=== PATIENT | male | born 1960 | race Two or more races ===

== ENCOUNTER 2024-03-15 10:23 | Observation (INO) ==
--- NOTE | 2024-03-15 10:47 | Emergency Department Note ---
History of Present Illness General Chief complaint: Wrist Pain Stated complaint: SPRAINED LT WRIST/ARM Time Seen by Provider: 03/15/24 10:37 History of Present Illness Maximum Pain Intensity: 10 This is a 64-year-old male that presents to the emergency department via private vehicle with complaints of "left hand and wrist pain". The patient notes he is right-hand dominant. Friday, this past weekend around 2 PM he was playing with family and notes that he tripped over a dog and landed with his left hand outstretched striking the palm against a small tree stump that impaled the left palm. He notes left hand and left wrist pain since that time. He did not strike the head or lose consciousness. No other areas of pain beyond the hand/wrist region. Patient notes tetanus vaccine is up-to-date. Patient does note history of type 2 diabetes. He notes history of codeine allergy. He has been trying ibuprofen and acetaminophen with minimal relief of his pain. Patient states that he was seen at [facility] emergency department when the injury occurred and was discharged in the splint. He notes he has no pain medication. No antibiotics. He was told that there was no fracture seen on x- ray. Home Medications Medication Instructions Recorded Confirmed Type rosuvastatin 40 mg tablet 40 mg PO DAILY 05/22/23 03/15/24 History fluticasone propionate 50 2 spray intranasal DAILY PRN 05/26/23 03/15/24 History mcg/actuation nasal allergies spray,suspension tamsulosin 0.4 mg capsule 0.4 mg PO HS 05/26/23 03/15/24 History glyburide 5 mg tablet 5 mg PO DAILY 03/15/24 03/15/24 History lisinopril 20 mg tablet 20 mg PO DAILY 03/15/24 03/15/24 History metformin 500 mg tablet,extended 1,000 mg PO BID 03/15/24 03/15/24 History release 24 hr pregabalin 150 mg capsule 150 mg PO BID 03/15/24 03/15/24 History Allergies Allergy/AdvReac Type Severity Reaction Status Date / Time codeine Allergy Hives Verified 03/15/24 11:15 Past Med/Surg History Problem List (Updated 03/15/24 @ 15:03 by Malick Matt PA-C) Puncture wound of hand (Acute) Cellulitis of left upper extremity (Acute) Cellulitis of left arm Depression Erectile dysfunction Dyslipidemia Hypertension Obesity (BMI 30-39.9) Type 2 diabetes mellitus Surgical History H/O total knee replacement Social History Smoking Status: Never smoker Preferred Language: [place] Feels Safe at Home: Yes Review of Systems A total of 10 systems reviewed and were otherwise negative Physical Exam Vital Signs Vital Signs - 24 hr 03/15/24 10:32 03/15/24 12:05 Temperature 36.7 C Temperature Source Skin Pulse Rate 89 Pulse Rate [Right Finger] 74 Pulse Rhythm [Right Finger] Regular Pulse Strength [Right Finger] Normal Respiratory Rate 16 20 Respiratory Effort / Characteristics Non-Labored Spontaneous Non-Labored Spontaneous Respiratory Depth Normal Normal Respiratory Pattern Regular Regular Blood Pressure 137/82 Blood Pressure [Right Arm] 123/72 Blood Pressure Mean 100 Blood Pressure Mean [Right Arm] 89 Blood Pressure Position [Right Arm] Sitting Pulse Oximetry 97 99 Oxygen Delivery Method Room Air Room Air Sepsis Recent Fever Within 48 Hours No Sepsis New/Unexplained Change in Mental Status N/A Sepsis Action Taken by Nursing No Action Required VITAL SIGNS - Vital signs and nursing notes were reviewed. Stable and afebrile. GENERAL -64-year-old male appearing his stated age who is in no acute distress. Communicates well with provider and answers questions appropriately. SKIN -approximately 6 mm in diameter puncture wound as evidenced by hole in the proximal palmar aspect of the left hand noted. There is surrounding erythema and edema particularly overlying the thenar eminence. No crepitus. No lymphangitic streaking. HEAD - NC/AT. EYES - PERRL with EOMI bilaterally. Sclera anicteric. EARS - No deformities of external structures noted on gross examination bilaterally. NOSE - Midline and without cyanosis. No epistaxis or purulent drainage noted. MOUTH/OROPHARYNX - Without perioral cyanosis. NECK - Neck with FROM. No nuchal rigidity. LUNGS - CTA CARDIAC - RRR EXTREMITIES - No clubbing or peripheral cyanosis. Skin as above. The entire left hand, left wrist region is tender. Left radial pulse within normal limits. Capillary refill of all digits of the left hand within normal limits. +5/5 strength noted in UE/LE bilaterally. NEUROLOGIC - Cranial nerves II through XII grossly intact. PSYCH - A&Ox3 and cooperates fully with examiner. Pt is very pleasant and interacts well with examiner. Course Administered Medications Lorazepam (Lorazepam 2 Mg/1 Ml Vial) 1 mg IV ONE PRN PRN Reason: PRIOR TO MRI IF NEEDED Stop: 04/14/24 13:16 Last Admin: 03/15/24 13:31 Dose: 1 mg Documented By: TIM Discontinued Medications Piperacillin Sod/Tazobactam Sod (Zosyn) 4.5 gm in 100 mls @ 200 mls/hr IV NOW ONE; Protocol Stop: 03/15/24 13:02 Last Infusion: 03/15/24 13:27 Dose: Infused Documented By: Admin: 03/15/24 12:40 Dose: 200 mls/hr Documented By: ELFEGO Ketorolac Tromethamine (Ketorolac 30 Mg/Ml Vial) 30 mg IV NOW ONE Stop: 03/15/24 13:13 Last Admin: 03/15/24 13:31 Dose: 30 mg Documented By: TIM Morphine Sulfate (Morphine Sulfate 2 Mg/Ml Carp) 2 mg IV NOW STA Stop: 03/15/24 12:35 Last Admin: 03/15/24 12:40 Dose: 2 mg Documented By: ELFEGO Oxycodone HCl (Oxycodone Hcl Ir 5 Mg Tab (Immediate Release)) 5 mg PO NOW STA Stop: 03/15/24 10:53 Last Admin: 03/15/24 11:08 Dose: 5 mg Documented By: ELFEGO Medical Decision Making Laboratory Data 03/15/24 11:09 03/15/24 11:09 Lab Results 03/15/24 Range/Units 11: WBC 6.35 (4.8-10.8) K/ul RBC 3.99 L (4.70-6.10) M/uL Hgb 11.5 L (14.0-18.0) g/dl Hct 33.5 L (42.0-52.0) % MCV 84.0 (80.0-100.0) fL MCH 28.8 (25.0-34.0) pg MCHC 34.3 (32.0-36.0) g/dL RDW Std Deviation 44.6 (36.4-46.3) fL RDW Coeff of Wai 14.6 H (11.5-14.5) % Plt Count 198 (130-400) K/uL MPV 10.4 (9.4-12.4) fL Immature Gran % (Auto) 0.6 % Neut % (Auto) 68.2 % Lymph % (Auto) 20.9 % [place] % (Auto) 6.6 % Eos % (Auto) 3.1 % Baso % (Auto) 0.6 % Neut # (Auto) 4.32 (1.40-6.50) K/uL Lymph # (Auto) 1.33 (1.20-3.40) K/uL [place] # (Auto) 0.42 (0.11-0.59) K/uL Eos # (Auto) 0.20 (0.00-0.50) K/uL Baso # (Auto) 0.04 (0.00-0.20) K/uL Immature Gran # (Auto) 0.04 (0.01-0.20) K/uL Sodium 136 (136-145) mmol/L Potassium 4.2 (3.5-5.1) mmol/L Chloride 103 (98-107) mmol/L Carbon Dioxide 26 (21-32) mmol/L Anion Gap 7 (3-11) BUN 14 (6-23) mg/dl Creatinine 0.73 (0.6-1.4) mg/dl Est Cr Clr Drug Dosing 125.7 ml/min eGFR 102.23 BUN/Creatinine Ratio 19.2 (10-20) Glucose 190 H (70-99(Fasting)) mg/dl Calcium 9.7 (8.6-10.3) mg/dl Total Bilirubin 0.4 (0.2-1.0) mg/dl AST 20 (13-39) U/L ALT 29 (7-52) U/L Alkaline Phosphatase 70 (34-104) U/L Total Protein 7.4 (6.0-8.3) gm/dl Albumin 4.4 (3.4-5.0) gm/dl Globulin 3.0 (2.5-4.0) gm/dl Albumin/Globulin Ratio 1.5 (0.9-2) Imaging Data Radiologist's Impression: Wrist X-Ray 03/15/24 10:36 XR wrist LT min 3V routine CLINICAL HISTORY: Left wrist pain following injury. COMPARISON: None FINDINGS: Alignment of the left wrist is anatomic. There is no acute fracture. No osseous lesions are identified. There are no erosions. Vascular calcifications incidentally noted. 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 IMPRESSION: No fracture or dislocation within the left wrist. ACT 112: Negative or not required by law. Electronically signed by: Nadir Benz M.D. 03/15/2024 11:20 AM Hand X-Ray 03/15/24 10:52 XR hand LT min 3V routine HISTORY: 64 years-old Male L hand pain s/p injury acute pain of the left hand and wrist status post trauma COMPARISON: Wrist radiographs of same day TECHNIQUE: 3 views of the left hand FINDINGS: Arterial calcifications. Multifocal osteoarthritis is predominantly mild however is moderate within the first carpometacarpal joint. No acute fracture, dislocation, osseous erosion or opaque foreign body. IMPRESSION: No acute fracture or dislocation identified within the hand. ACT 112: Negative or not required by law. The above report was generated using voice recognition software. It may contain grammatical, syntax or spelling errors. Electronically signed by: Carlos Manuel Nelson M.D. 03/15/2024 11:16 AM MDM Narrative Patient was seen and evaluated as above in room D02. Review was performed of triage nursing notes and vital signs. Patient presents to us today for evaluation of a puncture wound to the palmar aspect of the left hand with worsening pain since the injury occurred a few days ago. On assessment there is erythema and edema now surrounding the wound and the patient notes progressive and proximal tracking discomfort and edema. On assessment he cannot fully close his left hand. Options of care were discussed with the patient. IV access with established. Labs were drawn. There is no leukocytosis. Minor anemia noted. No emergent metabolic disturbance. Hyperglycemia at 190 noted. IV Zosyn ordered for broad- spectrum coverage. I also ordered oral and IV analgesia as initial oral medicine did not seem to provide any relief. X-ray hand and wrist per my interpretation without fracture or radiopaque foreign body. I discussed findings and presentation with the on-call orthopedist, Dr. Rowland. Will proceed with IV antibiotics and hospitalization. Patient will be n.p.o. at this time pending orthopedic assessment later today. I did place a dressing to the hand as instructed by orthopedics. Case discussed with the hospitalist service. Please refer to further documentation regarding his stay. GCS: 15 In the evaluation and treatment of this patient the following differential diagnoses were entertained: Cellulitis, abscess, necrotizing fasciitis, retained foreign body, fracture, open injury, among others. Impression & Plan Cellulitis of left upper extremity, Puncture wound of hand Discharge Plan Visit Data Chief Complaint: Wrist Pain Stated Complaint: SPRAINED LT WRIST/ARM ED Provider: Javier Polanco ED Midlevel Provider: Malick Matt Discharge Problem: Cellulitis of left upper extremity, Puncture wound of hand Patient Disposition: Admitted As Inpatient Condition: Good Forms Stand Alone Forms: [facility] [employer] Prescriptions Prescriptions: No Action tamsulosin 0.4 mg capsule 0.4 mg PO HS rosuvastatin 40 mg tablet 40 mg PO DAILY fluticasone propionate 50 mcg/actuation spray,suspension 2 spray intranasal DAILY PRN (Reason: allergies) Rx Instructions: administer into each nostril glyburide 5 mg tablet 5 mg PO DAILY lisinopril 20 mg tablet 20 mg PO DAILY metformin 500 mg tablet extended release 24 hr 1,000 mg PO BID pregabalin 150 mg capsule 150 mg PO BID Referrals Referrals: PCP,NO [Physician] -
[2024-03-15] MEDS: oxyCODONE HCL IR 5 MG TAB (IMMEDIATE RELEASE) PO STA (11:08)
--- NOTE | 2024-03-15 11:17 | XRay Report ---
XR hand LT min 3V routine HISTORY: 64 years-old Male L hand pain s/p injury acute pain of the left hand and wrist status post trauma COMPARISON: Wrist radiographs of same day TECHNIQUE: 3 views of the left hand FINDINGS: Arterial calcifications. Multifocal osteoarthritis is predominantly mild however is moderate within t he first carpometacarpal joint. No acute fracture, dislocation, osseous erosion or opaque foreign bod y. IMPRESSION: No acute fracture or dislocation identified within the hand. ACT 112: Negative or not required by law. The above report was generated using voice recognition software. It may contain grammatical, syntax o r spelling errors. Electronically signed by: Carlos Manuel Nelson M.D. 03/15/2024 11:16 AM
--- NOTE | 2024-03-15 11:21 | XRay Report ---
XR wrist LT min 3V routine CLINICAL HISTORY: Left wrist pain following injury. COMPARISON: None FINDINGS: Alignment of the left wrist is anatomic. There is no acute fracture. No osseous lesions ar e identified. There are no erosions. Vascular calcifications incidentally noted. Moderate osteoarthri tis of the left first carpometacarpal joint. IMPRESSION: No fracture or dislocation within the left wrist. ACT 112: Negative or not required by law. Electronically signed by: Nadir Benz M.D. 03/15/2024 11:20 AM
[2024-03-15 11:41] LABS: Basophils # (auto) 0.04 K/uL (0.00-0.20); Basophils % (auto) 0.6 %; Eosinophils % (auto) 3.1 %; Hematocrit (blood only) 33.5 % (42.0-52.0); Hemoglobin 11.5 g/dl (14.0-18.0); Immature Granulocytes # (auto) 0.04 K/uL (0.01-0.20); Immature Granulocytes % (auto) 0.6 %; Lymphocytes # (auto) 1.33 K/uL (1.20-3.40); Lymphocytes % (auto) 20.9 %; Mean Corpuscular Hemoglobin 28.8 pg (25.0-34.0); Mean Corpuscular Hgb Conc 34.3 g/dL (32.0-36.0); Mean Platelet Volume 10.4 fL (9.4-12.4); Monocytes # (auto) 0.42 K/uL (0.11-0.59); Monocytes % (auto) 6.6 %; Neutrophils # (auto) 4.32 K/uL (1.40-6.50); Neutrophils % (auto) 68.2 %; Platelet Count 198 K/uL (130-400); RDW Coefficient of Variation 14.6 % (11.5-14.5); RDW Standard Deviation 44.6 fL (36.4-46.3); Red Blood Count 3.99 M/uL (4.70-6.10); White Blood Count 6.35 K/ul (4.8-10.8)
[2024-03-15 11:50] LABS: Albumin Globulin Ratio 1.5 (0.9-2); Albumin Level 4.4 gm/dl (3.4-5.0); BUN Creatinine Ratio 19.2 (10-20); Bilirubin,Total 0.4 mg/dl (0.2-1.0); Calcium 9.7 mg/dl (8.6-10.3); Creatinine Clr Calc Pharmacy 125.7 ml/min; Potassium 4.2 mmol/L (3.5-5.1); Total Protein 7.4 gm/dl (6.0-8.3)
[2024-03-15] MEDS: MoRPHine SULFATE 2 MG/ML CARP IV STA (12:40)
[2024-03-15] MEDS: PIPERACILLIN/TAZOBACTAM 4.5 GM/100 ML BAG IV ONE (12:40)
--- NOTE | 2024-03-15 12:53 | History & Physical Report ---
Date of Service March 15, 2024 Assessment & Plan (1) Cellulitis of left arm: Plan Ron Rose is a 64y/o M with PMHx significant for DM type II, diabetic peripheral neuropathy, SHANNON on CPAP, HTN, BPH, hyperlipidemia, vitamin D deficiency and essential tremor who presented to the ED for evaluation of left hand and wrist pain. Patient was playing outside with his family and tripped over their dog this past Friday which resulted in him landing on his left hand outstretched directly onto a small tree stump - he unfortunately suffered a puncture wound to his left palmar region as there was a piece of sharp wood that was sticking out of the tree stump. He was evaluated at [facility] emergency department after the injury occurred and x-ray imaging at that time was negative for any acute fractures. He was discharged home with instructions for wound care and he was also placed in a splint at that time. However he has been dealing with a significant amount of pain since then and has noticed some erythema and warmth around the site of the puncture wound that seems to be tracking up his left forearm region. No recent systemic signs of illness. Cellulitis of Hand, Left ForeArm: Vital stable, no evidence of sepsis on admission. Notable erythema/warmth of L palmar region, erythematous tracking visualized up the L forearm as well. L hand/wrist XR with no evidence of fracture/dislocation. S/p IV Zosyn in the ED. MRSA swab pending. Continue ABX coverage w/ IV Zosyn + Daptomycin for now. PRN pain control. Blood cultures pending. Ortho made aware of the patient in the ED - formal consult pending. NPO until evaluated by ortho. DM Type II: Hold home agents, SSI regimen while inpatient. BSG checks ACHS. Most recent Hgb A1c was 8.3% on 02/24/2024. Other Chronic Medical Conditions: Diabetic peripheral neuropathy, HTN, BPH --> Can continue home medications for these specific conditions. CPAP HS for SHANNON. Hold statin while on daptomycin. DVT Prophylaxis: SCDs/TEDs for now pending orthopedic evaluation. Code Status: FULL CODE PCP: Maya Cutler MD Disposition: Admit to Med/Surg Patient seen in collaboration with Dr. Kerns. Please see addendum. I spent a total of 50 minutes coordinating, documenting, and providing care for this patient excluding time spent in the performance of separately billed s ervices. This included personally reviewing all current laboratories and imaging studies, medical reconciliation, outpatient chart review and discussion with specialists. This chart was completed in part utilizing Speech Voice Recognition Software. Grammatical errors, random word insertions, pronoun errors, and incomplete sentences are an occasional consequence of this system due to software limi tations, ambient noise, and hardware issues. Any formal questions or concerns about the content, text, or information contained within the body of this dictation should be directly addressed to the provider for clarification. History of Present Illness Chief Complaint: Left Hand/Wrist Pain Primary Care Provider: Maya Cutler MD Ron Rose is a 64y/o M with PMHx significant for DM type II, diabetic peripheral neuropathy, SHANNON on CPAP, HTN, BPH, hyperlipidemia, vitamin D deficiency and essential tremor who presented to the ED for evaluation of left hand and wrist pain. History obtained from patient and associated chart review. Patient seen at bedside with Dr. Kerns. Patient reports that he was playing outside with his family and tripped over his dog this past Friday which resulted in him landing on his left hand outstretc hed directly onto a small tree stump. He unfortunately suffered a puncture wound to his left palmar region as there was a piece of sharp wood that was sticking out of the tree stump. The piece of wood thankfully did not impale through his entire hand. He does not recall any fragments of wood being stuck inside of this puncture wound. He actually went to be evaluated at [facility] emergency department after the injury occurred and x-ray imaging at that time was negative for any acute fractures. He was discharged home with instructions for wound care and he was also placed in a splint at that time. He has been dealing with a significant amount of pain since then. He has been taking Motrin and Tylenol [id number] without much relief. He reports that he is now unable to move his left wrist or hand due to the pain. He does still have mobility at his left elbow joint. He has noticed some redness and warmth around the site of the puncture wound that does seem to be tracking up his left forearm region. He denies any fevers, chills or body aches since the injury occurred. He reports that his tetanus vaccination is up-to-date [last completed 09/25/2023 per Epic review]. He is not currently on any antibiotics. He has been cleaning his puncture wound at home with hydrogen peroxide. Patient reports minimal if any pain relief following 5mg po oxycodone and 2mg IV morphine in the ED. Mentions that he had an itching sensation over his right chest wall region after receiving the morphine however that has since subsided without intervention. He reports that he breaks out in hives and full-body itching with codeine. Offered to trial IV Toradol and he was agreeable to doing so. Allergies Allergy/AdvReac Type Severity Reaction Status Date / Time codeine Allergy Hives Verified 03/15/24 11:15 Home Medications Medication Instructions Recorded Confirmed Type rosuvastatin 40 mg tablet 40 mg PO DAILY 05/22/23 03/15/24 History fluticasone propionate 50 2 spray intranasal DAILY PRN 05/26/23 03/15/24 History mcg/actuation nasal allergies spray,suspension tamsulosin 0.4 mg capsule 0.4 mg PO HS 05/26/23 03/15/24 History glyburide 5 mg tablet 5 mg PO DAILY 03/15/24 03/15/24 History lisinopril 20 mg tablet 20 mg PO DAILY 03/15/24 03/15/24 History metformin 500 mg tablet,extended 1,000 mg PO BID 03/15/24 03/15/24 History release 24 hr pregabalin 150 mg capsule 150 mg PO BID 03/15/24 03/15/24 History Past Med/Surg History Problem List (Updated 03/15/24 @ 17:29 by Loli Shafer PA-C) Puncture wound of hand (Acute) Cellulitis of left upper extremity (Acute) Cellulitis of left arm Medical History (Updated 03/15/24 @ 17:29 by Loli Shafer PA-C) Depression Erectile dysfunction Dyslipidemia Hypertension Obesity (BMI 30-39.9) Type 2 diabetes mellitus Surgical History H/O total knee replacement Social History Smoking Status: Never smoker Hx Alcohol Use: Yes Alcohol type: beer Hx Substance Use: No Preferred Language: Kyrgyz Communication Ability: Effective Computer Security Manager Required: No Beliefs That Will Affect Care: None Current Living Situation: Alone and Spouse Current Living Situation Comment: 2 story home , 1 step to enter home Other Information That Helps Us Care for You: No Feels Safe at Home: Yes Safety Concerns: Feels Safe At This Time Assistive Devices: CPAP and Glasses Review of Systems Review of Systems: At least ten systems reviewed and negative, except as noted in the HPI. Physical Exam Physical Exam: Please refer to Dr. Kerns's addendum for physical examination findings. Results & Data Results & Data Vital Signs (Past 12 Hours) Vital Signs Temp Pulse Pulse Resp BP BP Pulse Ox 03/15/24 12:05 74 20 123/72 99 03/15/24 10:32 36.7 C 89 16 137/82 97 O2 Del Method 03/15/24 12:05 Room Air 03/15/24 10:32 Room Air Laboratory Results Short CBC 03/15/24 Range/Units 11:09 WBC 6.35 (4.8-10.8) K/ul Hgb 11.5 L (14.0-18.0) g/dl Hct 33.5 L (42.0-52.0) % Plt Count 198 (130-400) K/uL BMP 03/15/24 11:09 Sodium 136 Potassium 4.2 Chloride 103 Carbon Dioxide 26 BUN 14 Creatinine 0.73 Glucose 190 H Calcium 9.7 Liver Function 03/15/24 Range/Units 11:09 Total Bilirubin 0.4 (0.2-1.0) mg/dl AST 20 (13-39) U/L ALT 29 (7-52) U/L Alkaline Phosphatase 70 (34-104) U/L Albumin 4.4 (3.4-5.0) gm/dl Diagnostic Findings Wrist X-Ray 03/15/24 10:36 XR wrist LT min 3V routine CLINICAL HISTORY: Left wrist pain following injury. COMPARISON: None FINDINGS: Alignment of the left wrist is anatomic. There is no acute fracture. No osseous lesions are identified. There are no erosions. Vascular calcifications incidentally noted. 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 IMPRESSION: No fracture or dislocation within the left wrist. ACT 112: Negative or not required by law. Electronically signed by: Nadir Benz M.D. 03/15/2024 11:20 AM Hand X-Ray 03/15/24 10:52 XR hand LT min 3V routine HISTORY: 64 years-old Male L hand pain s/p injury acute pain of the left hand and wrist status post trauma COMPARISON: Wrist radiographs of same day TECHNIQUE: 3 views of the left hand FINDINGS: Arterial calcifications. Multifocal osteoarthritis is predominantly mild however is moderate within the first carpometacarpal joint. No acute fracture, dislocation, osseous erosion or opaque foreign body. IMPRESSION: No acute fracture or dislocation identified within the hand. ACT 112: Negative or not required by law. The above report was generated using voice recognition software. It may contain grammatical, syntax or spelling errors. Electronically signed by: Carlos Manuel Nelson M.D. 03/15/2024 11:16 AM Medications Administered Piperacillin Sod/Tazobactam Sod (Zosyn) 4.5 gm in 100 mls @ 200 mls/hr IV NOW ONE; Protocol Stop: 03/15/24 13:02 Last Admin: 03/15/24 12:40 Dose: 200 mls/hr Documented By: ELFEGO Discontinued Medications Morphine Sulfate (Morphine Sulfate 2 Mg/Ml Carp) 2 mg IV NOW STA Stop: 03/15/24 12:35 Last Admin: 03/15/24 12:40 Dose: 2 mg Documented By: ELFEGO Oxycodone HCl (Oxycodone Hcl Ir 5 Mg Tab (Immediate Release)) 5 mg PO NOW STA Stop: 03/15/24 10:53 Last Admin: 03/15/24 11:08 Dose: 5 mg Documented By: ELFEGO Code Status & VTE Plan Code Status FULL CODE Supervising Physician Co-Signing Physician Notes Attending Addendum: Case reviewed with the advanced practitioner. I have personally performed a history and physical examination on the patient. I have reviewed the advanced practitioner's documentation on the date of service referenced in note, and I agree with, and take responsibility for the plan of care. please refer to her notes for full details patient seen and examined, records reviewed by myself as well on exam, patient seen resting in bed, not in distress reports severe pain of the left hand and wrist, worse even with minimal movement no other symptoms VS noted and reviewed oriented x 3 , not in distress, speaks in sentences with no effort nor accessory muscle use normal rate, regular rhythm, no murmurs clear breath sounds bilaterally non distended, soft, nontender Left hand: (+) small puncture wound on the palm, with mild surrounding erythema, edema, (+) significant tenderness poor ROM of left wrist mild linear erythema, left radial area no bipedal edema, erythema, warmth no neuro deficits all labs, imaging noted and reviewed ASSESSMENT AND PLAN> INFECTED PUNCTURE WOUND, LEFT HAND (+) DM 2 blood culture: pending no bleeding or drainage noted for wound culture Xray of hand: no fracture IV Dapto + Zosyn Ortho consulted Pain Management with Tylenol, Toradol IV (history of rash with codeine) other diagnoses and plan of care as per advanced practitioner's notes Sagar Kerns MD
[2024-03-15] MEDS ORDERED: FLUTICASONE PROPIONATE NA SPR 16 GM BTL PRN (13:30)
[2024-03-15] MEDS: LORazepam 2 MG/1 ML VIAL IV PRN (13:31)
[2024-03-15] MEDS: KETOROLAC 30 MG/ML VIAL IV ONE (13:31)
[2024-03-15] MEDS: ONDANSETRON INJ 2 MG/ML 2 ML VIAL ONE (15:12)
--- OUTSIDE RECORDS SUMMARY | 2024-03-15 15:52 | External Medical Summary | Summary of Care ---
Author Name Unknown Organization [facility] Address [address] [place] [address] Phone [phone] Care Team Providers Care Spring Former Name Role Phone Maya Cutler MD Primary Care Provider [phone] Reason for Visit * Reason Comments Acute Encounter Details Date Type Department Care Team ([facility] Contact Info) Description 01/07/2024 9:40 AM EDT Office Visit Family Practice [facility] [address] [facility] [place] [address] Nely Sena PA-C [address] [facility] [place] [place] [address] Pain of right lower leg*; Diabetic peripheral neuropathy (HCC); Need for shingles vaccine Allergies Active Allergy Reactions Criticality Noted Date Comments Codeine 03/27/2023 Gets anxiety Latex 03/14/2023 documented as of this encounter (statuses as of 01/07/2024) Medications Medication Sig Dispensed Refills Start Date End Date Status Lisinopril 20 MG Oral Tablet (Prinivil) Take 1 Tablet by mouth in the morning. Active metFORMIN HCl ER 500 MG Oral Tablet Extended Release 24 Hour (Glucophage XR)Indications:Unco ntrolled type 2 diabetes mellitus with hyperglycemia (HCC) Take 2 Tablets by mouth in the morning and 2 Tablets in the evening. 360 Tablet 3 03/14/2023 Active OneTouch Ultra 2 w/Device KitIndications:Unco ntrolled type 2 diabetes mellitus with hyperglycemia (HCC) Use to check blood sugar two to four times daily 1 Kit 03/17/2023 Active OneTouch UltraSoft LancetsIndications: Uncontrolled type 2 diabetes mellitus with hyperglycemia (HCC) Use with glocometer to check blood sugar two to four times daily 100 Each 11 03/17/2023 Active Glucose Blood In Vitro StripIndications:Un controlled type 2 diabetes mellitus with hyperglycemia (HCC) Use with glucometer to check blood sugar two to four times daily 100 Strip 11 03/17/2023 Active Rosuvastatin Calcium 40 MG Oral Tablet (Crestor)Indication s:Dyslipidemia, goal LDL below 70 Take 1 Tablet by mouth in the morning. 90 Tablet 3 03/27/2023 Active Ozempic (1 MG/DOSE) 4 MG/3ML Subcutaneous Solution Pen-injector (Semaglutide (1 MG/DOSE))Indication s:Type 2 diabetes mellitus with hemoglobin A1c goal of less than 7.0% (HCC) Inject 1 mg under the skin once a week. 3 mL 5 06/02/2023 Active glyBURIDE 5 MG Oral Tablet (Diabeta)Indication s:Uncontrolled type 2 diabetes mellitus with hyperglycemia (HCC) Take 1 Tablet by mouth daily with breakfast. 30 Tablet 11 09/08/2023 Active Tamsulosin HCl 0.4 MG Oral Capsule (Flomax)Indications :BPH with obstruction/lower urinary tract symptoms TAKE 1 CAPSULE BY MOUTH EVERYDAY AT BEDTIME 30 Capsule 5 09/25/2023 Active Pregabalin 150 MG Oral Capsule (Lyrica)Indications :Diabetic peripheral neuropathy (HCC) Take 1 Capsule by mouth in the morning and 1 Capsule before bedtime. 01/07/2024 Active Zoster Vac Recomb Adjuvanted 50 MCG/0.5ML Intramuscular Suspension Reconstituted (Shingrix)Indicatio ns:Need for shingles vaccine Inject 0.5 mL into a large muscle now and repeat dose in 60 to 180 days 1 Each 1 01/07/2024 Active Pregabalin 150 MG Oral Capsule (Lyrica)Indications :Diabetic peripheral neuropathy (HCC) Take 1 Capsule by mouth in the morning and 1 Capsule before bedtime. 60 Capsule 11 12/12/2023 Discontinue d(Medicatio n List Clean Up) documented as of this encounter (statuses as of 01/07/2024) Active Problems Problem Noted Date Diagnosed Date Diabetic peripheral neuropathy 12/12/2023 Class 2 severe obesity due t o excess calories with serious comorbidity and body mass index (BMI) of 35.0 to 35.9 in adult 09/25/2023 BPH with obstruction/lower urinary tract symptom s 09/25/2023 SHANNON (obstructive sleep apnea) 03/27/2023 Food insecurity 03/24/2023 Overview: Per [facility] Protocol Type 2 diabetes mellitus wit h hemoglobin A1c goal of less than 7.0% 03/14/2023 HTN, goal below 130/80 03/14/2023 documented as of this encounter (statuses as of 01/07/2024) Immunizations Name Administration Dates Next Due COVID-19 mRNA, LNP-s, No Pre serve, 2-Dose Series (Pfizer) 06/01/2021,06/28/2020,05/23/2020 Pneumococcal Conjugate Vacci ne, 20-valent ([id number]) 09/25/2023 Seasonal Influenza Virus Vac cine, Unspecified Formulation 03/12/2023 Seasonal Influenza, Split, I IV3, With Preserve, Inj 01/25/2014 TDAP (age 10 and older)(Boostrix) 09/25/2023 Zoster Vaccine Recombinant (Shingrix) 01/07/2024 ,10/16/2023 documented as of this encounter Social History Tobacco Use Types Packs/Day Years Used Date Smoking Tobacco: Never Smokeless Tobacco: Never Alcohol Use Standard Drinks/Week Comments Never 0 (1 standard drink = 0.6 oz pur e alcohol) Hunger Vital Sign Answer Date Recorded Within the past 12 months, y ou worried that your food would run out before you got the money to buy more. Sometimes true Within the past 12 months, t he food you bought just didn't last and you didn't have money to get more. Sometimes true Childcare Answer Date Recorded Do you feel overwhelmed with taking care of a child, family member or friend? No 12/01/2023 Does your family need help f inding childcare? (Household - for ages 0-17 years) Not on file 12/01/2023 Clothing Answer Date Recorded Have you been unable to get clothing when it was really needed? No 12/01/2023 Is your family able to get c lothes or diapers when needed? (Household - for ages 0-17 years) Not on file 12/01/2023 Personal Safety Answer Date Recorded Do you feel unsafe or have concerns for your saf ety? No 12/01/2023 Do you have concerns for you r family's safety? (Household - for ages 0-17 years) Not on file 12/01/2023 Utilities Answer Date Recorded Do you have trouble paying y our heating, water, or electric bill? Yes 12/01/2023 Is your family able to pay t he heat, water, or electric bill? (Household - for ages 0-17 years) Not on file 12/01/2023 Does your family have access to good internet? (Household - for ages 0-17 years) Not on file 12/01/2023 Employment Status Answer Date Recorded Are you unemployed or without regular income? No 12/01/2023 Does the household have a re gular source of income? (Household - for ages 0-17 years) Not on file 12/01/2023 Social Connections Answer Date Recorded How often do you feel lonely or isolated from those around you? Sometimes 12/01/2023 Financial Resource Strain Answer Date R ecorded Do you have any trouble payi ng for your medications, or do you think you might in the future? No 12/01/2023 Does your family have troubl e paying for medicine? (Household - for ages 0-17 years) Not on file 12/01/2023 Transportation Needs Answer Date Record ed READ ONLY Do you have troubl e getting a ride to medical visits or work? Never True 12/01/2023 Does your family have a hard time getting a ride to doctors visits? (Household - for ages 0-17 years) Not on file 12/01/2023 Has lack of transportation k ept you from medical appointments, meetings, work, or from getting things needed for daily living? Check all that apply. No 12/01/2023 Do you (or your family) have trouble finding or paying for a ride (transportation)? (Household - for ages 0-17 years) Not on file 12/01/2023 Housing Stability Answer Date Recorded Do you currently live in a s helter or have no steady place to sleep at night? No 12/01/2023 READ ONLY Do you think you a re at risk of becoming homeless? No 12/01/2023 Does your family worry about paying for your home or becoming homeless? (Household - for ages 0-17 years) Not on file 0 12/01/2023 Are you homeless or worried that you might be in the future? No 12/01/2023 Are you (or your family) karolyn eless or worried that you might be in the future? (Household - for ages 0-17 years) Not on file Food Insecurity Answer Date Recorded Do you need food for this week? No 12/01/2023 Are you able to get enough f ood for your family? (Household - for ages 0-17 years) Not on file 12/01/2023 Does your family need food t his week? (Household - for ages 0-17 years) Not on file 12/01/2023 Do you always have enough fo od for your family? (Household - for ages 0-17 years) Not on file 12/01/2023 Sex and Gender Information Value Date Recorded Sex Assigned at Male 03/13/2023 9:59 AM EDT Gender Identity Male 03/13/2023 9:59 AM EDT Sexual Orientation Straight 03/13/2023 9: 59 AM EDT Job Start Date Occupation Industry Not on file Not on file Not on file documented as of this encounter Last Filed Vital Signs Vital Sign Reading Time Taken Comments Blood Pressure 128/66 01/07/2024 9:30 AM EDT Pulse 66 01/07/2024 9:30 AM EDT Temperature 36.3 C (97.3 F) 01/07/2024 9:30 AM ED T Respiratory Rate 18 01/07/2024 9:30 AM EDT Oxygen Saturation 97% 01/07/2024 9:30 AM EDT Inhaled Oxygen Concentration - - Weight 108.8 kg (239 lb 12.8 oz) 01/07/2024 9:30 AM EDT Height - - Body Mass Index 35.41 12/12/2023 12:46 PM EDT documented in this encounter Progress Notes * Jolie Villalobos LPN - 01/07/2024 10:00 AM EDT Pre-Administration Time Out Procedure Performed: Yes Patient Identified (Ask Name/Date of ): Yes Does the patient have a fever greater than 101 degrees today? No Patient allergic to latex? No Has the patient ever fainted after receiving an injection? No VFC Stock: No Immunization(s) verified: Yes, Immunization Name: Shingrix, VIS Sheet(s) given: Yes Verified Side and Site: Yes Verified Shot(s) with Parent(s)/Patient: Yes * NathenNely PA-C - 01/07/2024 9:38 AM EDT Images from the original note were not included. History of Present Illness Ron Rose is a 63 year old male that presents for No chief complaint on file. Patient is a 63 year old male who presents with right leg pain which has ongoing since 2004. Knee is painful , has had arthroscopic. Pain is intermittent. Worse at night. Gets cramps in leg and feet.Burning pain. Diabetic, good control No swelling Feels like it will give out. Pain radiates down into his calf Physical Exam Vitals: 01/07/24 0930 Temp: 36.3 C (97.3 F) Pulse: 66 Resp: 18 SpO2: 97% BP: 128/66 BP Readings from Last 3 Encounters: 01/07/24 128/66 12/12/23 124/68 09/25/23 126/66 Wt Readings from Last 3 Encounters: 01/07/24 108.8 kg (239 lb 12.8 oz) 12/12/23 108 kg (238 lb) 09/25/23 104.3 kg (230 lb) General: alert, healthy, no distress, well nourished, well developed, comfortable, and cooperative Head: Normocephalic, No masses, lesions, tenderness or abnormalities Eye Exam: PERRLA, extraocular movements intact, conjunctiva are pink and non- injected, sclera clear Lungs: chest symmetric with normal AP diameter, no chest deformities noted, normal respiratory rateand rhythm, diaphragmatic excursion normal Extremities: less than 2 second capillary refill, no joint deformities, effusion, or inflammation, no edema, no skin discoloration, no clubbing, no cyanosis, Full ROM, Pulses Intact, Strength equal bilaterally I have reviewed the following results: None Assessment and Plan Pain of right lower leg (Primary) - XR KNEE 4 OR MORE VIEWS; Future; Expected date: 01/07/2024 - VASC DUPLEX VENOUS LE UNILAT; Future; Expected date: 01/07/2024 - MAGNESIUM; Future; Expected date: 01/07/2024 - CBC; Future; Expected date: 01/07/2024 - ERYTHROCYTE SEDIMENTATION RATE (ESR); Future; Expected date: 01/07/2024 - BASIC METABOLIC PANEL; Future; Expected date: 01/07/2024 Diabetic peripheral neuropathy (HCC) - ALBUMIN / CREATININE RATIO, URINE; Future; Expected date: 01/07/2024 Need for shingles vaccine - ZOSTER VACCINE RECOMB, 2 DOSE, IM (SHINGRIX) - Zoster Vac Recomb Adjuvanted 50 MCG/0.5ML Intramuscular Suspension Reconstituted (Shingrix); Inject 0.5 mL into a large muscle now and repeat dose in 60 to 180 days Check-out note: Schedule doppler Wrap-Up Time: I spent a total of 20-29 minutes (exact time 25 mins) on the date of service in preparation, delivery, and documentation of the care provided to Ron Rose excluding any time spent in the performance of separately billed services. documented in this encounter Nursing Notes * Jolie Villalobos LPN - 01/07/2024 9:29 AM EDT Ron Rose presents with complaints of ongoing right leg pain/discomfort. documented in this encounter Plan of Treatment Upcoming Encounters Date Type Department Care Team (Late st Contact Info) Description 01/09/2024 10:30 AM EDT Imaging Vascular Lab, [facility], [address] [place] [address] 03/29/2024 10:40 AM EST Office Visit Family Practice [facility] [place] [address] [place] [address] Maya Cutler MD [address] [place] [address] 04/26/2024 11:00 AM EST Office Visit Pharmacy, [facility] [place] [address] [place] [address] [address] Pharmacist2, [facility] [address] [place], [place] [address] 07/07/2024 10:00 AM EST Office Visit Urology [facility] [address] [place] [address] [place], Valeriano Wang MD [address] [place] [address] 07/07/2024 11:20 AM EST Office Visit Sleep Disorders Ctr [facility] [place] [address] [place] [phone] Sherrie Jones DO [address] [place] [address] Pending Results Name Type Priority Associated Diagnoses Date /Time XR KNEE 4 OR MORE VIEWS Medical Imaging Routine Pain of right lower leg 01/07/2024 10:14 AM EDT Scheduled Orders Name Type Priority Associated Diagnoses Orde r Schedule ALBUMIN / CREATININE RATIO, URINE Lab Routine Diabetic peripheral neuropathy (HCC) Expected: 01/07/2024, Expires: 01/06/2025 XR KNEE 4 OR MORE VIEWS Medical Imaging Routine Pain of right lower leg Expected: 01/07/2024, Expires: 02/07/2024 VASC DUPLEX VENOUS LE UNILAT Medical Imaging Routine Pain of right lower leg Expected: 01/07/2024, Expires: 03/08/2024 MAGNESIUM Lab Routine Pain of right lower leg Expected: 01/07/2024 (Approximate), Expires: 01/06/2025 CBC Lab Routine Pain of right lower leg Expected: 01/07/2024 (Approximate), Expires: 01/06/2025 ERYTHROCYTE SEDIMENTATION RATE (ESR) Lab Routine Pain of right lower leg Expected: 01/07/2024 (Approximate), Expires: 01/06/2025 BASIC METABOLIC PANEL Lab Routine Pain of right lower leg Expected: 01/07/2024 (Approximate), Expires: 01/06/2025 Health Maintenance Due Date Last Done Comments HIV Screening 01/29/1975 Hepatitis C Screening 1979 Cologuard 2006 Fecal Occult Blood Test 2006 Sigmoidoscopy 2006 Influenza Vaccine (FLU shot) (#1) 2024 03/12/2023, 01/25/2014 Albumin/Creatinine Ratio 03/27/2024 03/27/2023 HbA1c 03/27/2024 09/25/2023, 05/13, 03/27/2023, Additional history exists Diabetic Eye Exam 06/03/2024 06/03/2023 GFR 06/06/2024 06/06/2023, 11/0 07/2022, 12/19/2022 Diabetic Foot Exam 09/24/2024 09/25/2023 Depression Screening 01/06/2025 01/07/2024 Lipid Panel 03/27/2028 03/27/2023, 12/19/2022 Colonoscopy 05/12/2029 05/12/2019 Colorectal Cancer Screening 05/12/2029 DTap/Tdap Vaccines (2 - Td or Tdap) 09/24/2033 09/25/2023 COVID-19 Vaccine Completed 03/12/2023, , 06/28/2020, Additional history exists Pneumococcal Vaccine: Pediatrics (0 to 5 Years) and At-Risk Patients (6 to 64 Years) Completed 09/25/2023 Zoster Vaccines Completed 01/07/2024, 10/16/2023 HPV (Gardasil) Vaccine Aged Out No lo nger eligible based on patient's age to complete this topic Hepatitis B Vaccine Aged Out No longe r eligible based on patient's age to complete this topic MENINGOCOCCAL (MENACTRA/MENVEO) Aged Out No longer eligible based on patient's age to complete this topic documented as of this encounter Medical Devices Not on filedocumented as of this encounter Visit Diagnoses Diagnosis Pain of right lower leg- Primary Pain in limb Diabetic peripheral neuropathy (HCC) Type II or unspecified type diabetes mellitus with neurological manifestations, not stated as uncontrolled Need for shingles vaccine Need for prophylactic vaccination and inoculation against other viral diseases documented in this encounter Care Teams Spring Former Relationship Specialty Start Date End Date Maya Cutler MD [address] [facility] [place] [address] PCP - General Family Medicine 03/27/23 documented as of this encounter
--- OUTSIDE RECORDS SUMMARY | 2024-03-15 15:52 | External Medical Summary | Summary of Care ---
Author Name Unknown Organization [facility] Address [address] [place] [address] Phone [phone] Care Team Providers Care Floor Clerk Name Role Phone Maya Cutler MD Primary Care Provider [phone] Reason for Visit * Reason Comments eRx-Medication Refill Encounter Details Date Type Department Care Team (Late st Contact Info) Description 03/10/[address] [facility] [address] [place] [address] John Schuster PA-C [address] [place] [address] Uncontrolled type 2 diabetes mellitus with hyperglycemia (HCC) Allergies Active Allergy Reactions Criticality Noted Date Comments Codeine 03/27/2023 Gets anxiety Latex 03/14/2023 documented as of this encounter (statuses as of 03/11/2024) Medications Medication Sig Dispensed Refills Start Date End Date Status OneTouch Ultra 2 w/Device KitIndications:Unc ontrolled type 2 diabetes mellitus with hyperglycemia (HCC) Use to check blood sugar two to four times daily 1 Kit 03/17/2023 Active Glucose Blood In Vitro StripIndications:U ncontrolled type 2 diabetes mellitus with hyperglycemia (HCC) Use with glucometer to check blood sugar two to four times daily 100 Strip 11 03/17/2023 Active Rosuvastatin Calcium 40 MG Oral Tablet (Crestor)Indicatio ns:Dyslipidemia, goal LDL below 70 Take 1 Tablet by mouth in the morning. 90 Tablet 3 03/27/2023 Active Ozempic (1 MG/DOSE) 4 MG/3ML Subcutaneous Solution Pen-injector (Semaglutide (1 MG/DOSE))Indicatio ns:Type 2 diabetes mellitus with hemoglobin A1c goal of less than 7.0% (HCC) Inject 1 mg under the skin once a week. 3 mL 5 06/02/2023 Active glyBURIDE 5 MG Oral Tablet (Diabeta)Indicatio ns:Uncontrolled type 2 diabetes mellitus with hyperglycemia (HCC) Take 1 Tablet by mouth daily with breakfast. 30 Tablet 11 09/08/2023 Active Tamsulosin HCl 0.4 MG Oral Capsule (Flomax)Indication s:BPH with obstruction/lower urinary tract symptoms TAKE 1 CAPSULE BY MOUTH EVERYDAY AT BEDTIME 30 Capsule 5 09/25/2023 Active Pregabalin 150 MG Oral Capsule (Lyrica)Indication s:Diabetic peripheral neuropathy (HCC) Take 1 Capsule by mouth in the morning and 1 Capsule before bedtime. 01/07/2024 Active Zoster Vac Recomb Adjuvanted 50 MCG/0.5ML Intramuscular Suspension Reconstituted (Shingrix)Indicati ons:Need for shingles vaccine Inject 0.5 mL into a large muscle now and repeat dose in 60 to 180 days 1 Each 1 01/07/2024 Active OneTouch UltraSoft LancetsIndications :Uncontrolled type 2 diabetes mellitus with hyperglycemia (HCC) Use with glocometer to check blood sugar two to four times daily 100 Each 11 02/23/2024 Active Lisinopril 20 MG Oral Tablet (Prinivil) Take 1 Tablet by mouth in the morning. 90 Tablet 3 02/24/2024 Active metFORMIN HCl ER 500 MG Oral Tablet Extended Release 24 Hour (Glucophage XR)Indications:Unc ontrolled type 2 diabetes mellitus with hyperglycemia (HCC) TAKE 2 TABLETS BY MOUTH IN THE MORNING AND 2 TABLETS IN THE EVENING 360 Tablet 3 03/11/2024 Active metFORMIN HCl ER 500 MG Oral Tablet Extended Release 24 Hour (Glucophage XR)Indications:Unc ontrolled type 2 diabetes mellitus with hyperglycemia (HCC) Take 2 Tablets by mouth in the morning and 2 Tablets in the evening. 360 Tablet 3 03/14/2023 03/11/20 24 Discontinued documented as of this encounter (statuses as of 03/11/2024) Active Problems Problem Noted Date Diagnosed Date Diabetic peripheral neuropathy 12/12/2023 Class 2 severe obesity due t o excess calories with serious comorbidity and body mass index (BMI) of 35.0 to 35.9 in adult 09/25/2023 BPH with obstruction/lower urinary tract symptom s 09/25/2023 SHANNON (obstructive sleep apnea) 03/27/2023 Food insecurity 03/24/2023 Overview: Per [facility] Protocol Type 2 diabetes mellitus wit h hemoglobin A1c goal of less than 7.0% 03/14/2023 HTN, goal below 130/80 03/14/2023 documented as of this encounter (statuses as of 03/11/2024) Immunizations Name Administration Dates Next Due COVID-19 mRNA, LNP-s, No Pre serve, 2-Dose Series (Pfizer) 06/01/2021,06/28/2020,05/23/2020 Pneumococcal Conjugate Vacci ne, 20-valent ([id number]) 09/25/2023 Seasonal Influenza Vac., MDV , IM, 0.5 mL (Fluzone) 01/25/2014 Seasonal Influenza Virus Vac cine, Unspecified Formulation 03/12/2023 TDAP (age 10 and older)(Boostrix) 09/25/2023 Zoster Vaccine Recombinant (Shingrix) 01/07/2024 ,10/16/2023 documented as of this encounter Social History Tobacco Use Types Packs/Day Years Used Date Smoking Tobacco: Never Smokeless Tobacco: Never Alcohol Use Standard Drinks/Week Comments Never 0 (1 standard drink = 0.6 oz pur e alcohol) PHQ-2 Answer Date Recorded PHQ Adult Total Score 1 01/07/2024 Hunger Vital Sign Answer Date Recorded Within [...] on file documented as of this encounter Miscellaneous Notes * Telephone Encounter - Sindi Davis RPh - 03/11/2024 6:06 AM EDTSigned Prescriptions: Disp Refills metFORMIN HCl ER 500 MG Oral Tablet Extend*360 Ta*3 Sig: TAKE 2 TABLETS BY MOUTH IN THE MORNING AND 2 TABLETS IN THE EVENINGAuthorizing Provider: Paresh CUTLER User: SINDI DAVIS documented in this encounter Plan of Treatment Upcoming Encounters Date Type Department Care Team (Late st Contact Info) Description 03/29/2024 10:40 AM EST Office Visit Family Practice [facility] [address] [facility] [place] [address] Maya Cutler MD [address] [facility] [place] [address] 04/26/2024 11:00 AM EST Office Visit Pharmacy, [facility] [address] [facility] [place] [address] Pharmacist2, [facility] [address] [facility] [place] [address] 07/07/2024 10:00 AM EST Office Visit Urology Zeinab Jacobo [address] [place] [address] Valeriano Rizvi Jr., MD [address] [place] [address] 07/07/2024 11:20 AM EST Office Visit Sleep Disorders Ctr [facility] [address] [place] [phone] Sherrie Jones DO [address] [place] [phone] Health Maintenance Due Date Last Done Comments HIV Screening 01/29/1975 Hepatitis C Screening 1979 Cologuard 2006 Fecal Occult Blood Test 2006 Sigmoidoscopy 2006 COVID-19 Vaccine ( season) 2024 03/12/2023, 06/01/2021, 06/28/2020, Additional history exists Albumin/Creatinine Ratio 03/27/2024 03/27/2023 Diabetic Eye Exam 06/03/2024 06/03/2023 HbA1c 08/24/2024 02/24/2024, 09/09, 06/06/2023, Additional history exists Diabetic Foot Exam 09/24/2024 09/25/2023 Depression Screening 01/06/2025 01/07/2024 GFR 02/23/2025 02/24/2024, 09/0 10/2023, 06/06/2023, Additional history exists Lipid Panel 03/27/2028 03/27/2023, 12/19/2022 Colonoscopy 05/12/2029 05/12/2019 Colorectal Cancer Screening 05/12/2029 DTap/Tdap Vaccines (2 - Td or Tdap) 09/24/2033 09/25/2023 Pneumococcal Vaccine: Pediatrics (0 to 5 Years) and At-Risk Patients (6 to 64 Years) Completed 09/25/2023 Zoster Vaccines Completed 01/07/2024, 10/16/2023 Influenza Vaccine (FLU shot) Completed , 03/12/2023, 01/25/2014 HPV (Gardasil) Vaccine Aged Out No lo [...] as of this encounter Visit Diagnoses Diagnosis Uncontrolled type 2 diabetes mellitus with hyperglycemia (HCC) documented in this encounter Care Teams Floor Clerk Relationship Specialty Start Date End Date Maya Cutler MD [address] [place] [address] PCP - General Family Medicine 03/27/23 documented as of this encounter
--- OUTSIDE RECORDS SUMMARY | 2024-03-15 15:52 | External Medical Summary ---
Author Name Unknown Address Unknown Organization K09:[facility] [place] [address] Laboratory Report Ordering Provider Test Date Status 01/16/2024 09:10:15 Final Observation Date Value Abnormality Reference (Units ) Status Magnesium 01/16/2024 09:10:15 1.6 1.5-2.6 (m g/dL) Final Performing Location [facility] [place] [address]
--- OUTSIDE RECORDS SUMMARY | 2024-03-15 15:52 | External Medical Summary | Summary of Care ---
Author Name Unknown Organization [facility] Address [address] [place] [address] Phone [phone] Care Team Providers Care Typer Name Role Phone Maya Cutler MD Primary Care Provider Reason for Visit * Reason Onset Date Comments Medication Refill 01/21/2024 Encounter Details Date Type Department Care Team ([facility] st Contact Info) Description 01/21/2024 Refill General Internal Medicine [facility] [address] [facility] [place] [address] Maya Cutler MD [address] [place] [address] Uncontrolled type 2 diabetes mellitus with hyperglycemia (HCC) Allergies Active Allergy Reactions Criticality Noted Date Comments Codeine 03/27/2023 Gets anxiety Latex 03/14/2023 documented as of this encounter (statuses as of 01/23/2024) Medications Medication Sig Dispensed Refills Start Date End Date Status Lisinopril 20 MG Oral Tablet (Prinivil) Take 1 Tablet by mouth in the morning. Active metFORMIN HCl ER 500 MG Oral Tablet Extended Release 24 Hour (Glucophage XR)Indications:Uncon trolled type 2 diabetes mellitus with hyperglycemia (HCC) Take 2 Tablets by mouth in the morning and 2 Tablets in the evening. 360 Tablet 3 03/14/2023 Active OneTouch Ultra 2 w/Device KitIndications:Uncon trolled type 2 diabetes mellitus with hyperglycemia (HCC) Use to check blood sugar two to four times daily 1 Kit 03/17/2023 Active OneTouch UltraSoft LancetsIndications:U ncontrolled type 2 diabetes mellitus with hyperglycemia (HCC) Use with glocometer to check blood sugar two to four times daily 100 Each 11 03/17/2023 Active Glucose Blood In Vitro StripIndications:Unc ontrolled type 2 diabetes mellitus with hyperglycemia (HCC) Use with glucometer to check blood sugar two to four times daily 100 Strip 11 03/17/2023 Active Rosuvastatin Calcium 40 MG Oral Tablet (Crestor)Indications :Dyslipidemia, goal LDL below 70 Take 1 Tablet by mouth in the morning. 90 Tablet 3 03/27/2023 Active Ozempic (1 MG/DOSE) 4 MG/3ML Subcutaneous Solution Pen-injector (Semaglutide (1 MG/DOSE))Indications :Type 2 diabetes mellitus with hemoglobin A1c goal of less than 7.0% ([facility]) Inject 1 mg under the skin once a week. 3 mL 5 06/02/2023 Active glyBURIDE 5 MG Oral Tablet (Diabeta)Indications :Uncontrolled type 2 diabetes mellitus with hyperglycemia ([facility]) Take 1 Tablet by mouth daily with breakfast. 30 Tablet 11 09/08/2023 Active Tamsulosin HCl 0.4 MG Oral Capsule (Flomax)Indications: BPH with obstruction/lower urinary tract symptoms TAKE 1 CAPSULE BY MOUTH EVERYDAY AT BEDTIME 30 Capsule 5 09/25/2023 Active Pregabalin 150 MG Oral Capsule (Lyrica)Indications: Diabetic peripheral neuropathy ([facility]) Take 1 Capsule by mouth in the morning and 1 Capsule before bedtime. 01/07/2024 Active Zoster Vac Recomb Adjuvanted 50 MCG/0.5ML Intramuscular Suspension Reconstituted (Shingrix)Indication s:Need for shingles vaccine Inject 0.5 mL into a large muscle now and repeat dose in 60 to 180 days 1 Each 1 01/07/2024 Active documented as of this encounter (statuses as of 01/23/2024) Active Problems Problem Noted Date Diagnosed Date Diabetic peripheral neuropathy 12/12/2023 Class 2 severe obesity due t o excess calories with serious comorbidity and body mass index (BMI) of 35.0 to 35.9 in adult 09/25/2023 BPH with obstruction/lower urinary tract symptom s 09/25/2023 SHANNON (obstructive sleep apnea) 03/27/2023 Food insecurity 03/24/2023 Overview: Per [facility] Protocol Type 2 diabetes mellitus wit h hemoglobin A1c goal of less than 7.0% 03/14/2023 HTN, goal below 130/80 03/14/2023 documented as of this encounter (statuses as of 01/23/2024) Immunizations Name Administration Dates Next Due COVID-19 mRNA, LNP-s, No Pre serve, 2-Dose Series (Pfizer) 06/01/2021,06/28/2020,05/23/2020 Pneumococcal Conjugate Vacci ne, 20-valent ([id number]) 09/25/2023 Seasonal Influenza Virus Vac cine, Unspecified Formulation 03/12/2023 Seasonal Influenza, Trivalen t, (IIV3), with Preserv, (Fluzone) 01/25/2014 TDAP (age 10 and older)(Boostrix) 09/25/2023 [...] encounter Miscellaneous Notes * Telephone Encounter - Gogo Villagomez RPh - 01/23/2024 7:56 AM EDTRefused Prescriptions: Disp Refills glyBURIDE 5 MG Oral Tablet (Diabeta) 30 Tab*11 Sig: Take 1 Tablet by mouth daily with breakfast.Refused By: GOGO VILLAGOMEZ for Refusal: Too soon documented in this encounter Plan of Treatment Upcoming Encounters Date Type Department Care Team (Late st Contact Info) Description 03/29/2024 10:40 AM EST Office Visit Family Practice [facility] [place] [address] [place] [address] Maya Cutler MD [address] [place] [address] [address] 04/26/2024 11:00 AM EST Office Visit Pharmacy, [facility] [place] [address] [place] [address] Pharmacist2, [facility] [address] [place] [address] 07/07/2024 10:00 AM EST Office Visit Urology [facility]ga [address] [place] [address] [place], Valeriano Wang MD [address] [place] [address] 07/07/2024 11:20 AM EST Office Visit [facility] Disorders Ctr [facility] [place] [address] [place] [address] Sherrie Jones DO [address] [place] [address] Health Maintenance Due Date Last Done Comments HIV Screening 01/29/1975 Hepatitis C Screening 1979 Cologuard 2006 Fecal Occult Blood Test 2006 Sigmoidoscopy 2006 COVID-19 Vaccine ( season) 2024 03/12/2023, 06/01/2021, 06/28/2020, Additional history exists Influenza Vaccine (FLU shot) (#1) 2024 03/12/2023, 01/25/2014 Albumin/Creatinine Ratio 03/27/2024 03/27/2023 HbA1c 03/27/2024 09/25/2023, 05/13, 03/27/2023, Additional history exists Diabetic Eye Exam 06/03/2024 06/03/2023 Diabetic Foot Exam 09/24/2024 09/25/2023 Depression Screening 01/06/2025 01/07/2024 GFR 01/15/2025 01/16/2024, 05/13, 03/14/2023, Additional history exists Lipid Panel 03/27/2028 03/27/2023, [...] (HCC) documented in this encounter Care Teams Typer Relationship Specialty Start Date End Date Maya Cutler MD [address] [place] [address] PCP - General Family Medicine 03/27/23 documented as of this encounter
--- OUTSIDE RECORDS SUMMARY | 2024-03-15 15:52 | External Medical Summary ---
Author Name Unknown Address Unknown Organization [id number]:[facility] [place] [address] Laboratory Report Ordering Provider Test Date Status 01/16/2024 09:10:15 Final Observation Date Value Abnormality Reference (Units ) Status WBC, Total 01/16/2024 09:10:15 6.37 4.00-10.8 0 (K/uL) Final RBC 01/16/2024 09:10:15 4.25 4.50-5.25 (M/uL) Final Hemoglobin 01/16/2024 09:10:15 12.4 Below low normal 14 .0-16.8 (g/dL) Final HCT 01/16/2024 09:10:15 37.1 Below low normal 40. 0-48.4 (%) Final MCV 01/16/2024 09:10:15 87.3 82.0-99.5 (fL) Final MCH 01/16/2024 09:10:15 29.2 27.0-34.0 (pg) Final MCHC 01/16/2024 09:10:15 33.4 32.0-36.0 (g/dL) Final RDW 01/16/2024 09:10:15 14.5 11.5-15.5 (%) Final Platelets 01/16/2024 09:10:15 214 140-400 (K /uL) Final MPV 01/16/2024 09:10:15 10.0 6.6-11.1 ( fL) Final Performing Location [facility] [place] [address]
--- OUTSIDE RECORDS SUMMARY | 2024-03-15 15:52 | External Medical Summary | Summary of Care ---
Author Name Unknown Organization [facility] Address [address] [place] [address] Phone [phone] Care Team Providers Care Fruit Harvester Machine Operator Name Role Phone Maya Cutler MD Primary Care Provider [phone] Reason for Visit * Reason Comments Outpatient Testing Encounter Details Date Type Department Care Team ([facility] st Contact Info) Description 02/24/2024 9:10 AM EDT Laboratory Laboratory [facility] [address] [place] [address] [facility] [address] [place] [address] Type 2 diabetes mellitus with hemoglobin A1c goal of less than 7.0% (HCC) Allergies Active Allergy Reactions Criticality Noted Date Comments Codeine 03/27/2023 Gets anxiety Latex 03/14/2023 documented as of this encounter (statuses as of 02/24/2024) Medications Medication Sig Dispensed Refills Start Date [...] Kit 03/17/2023 Active Glucose Blood In Vitro StripIndications:Unc [...] MG Oral Capsule (Lyrica)Indications: Diabetic peripheral neuropathy (HCC) Take 1 Capsule by mouth in the morning and 1 Capsule before bedtime. 01/07/2024 Active Zoster Vac Recomb Adjuvanted 50 MCG/0.5ML Intramuscular Suspension Reconstituted (Shingrix)Indication s:Need for shingles vaccine Inject 0.5 mL into a large muscle now and repeat dose in 60 to 180 days 1 Each 1 01/07/2024 Active OneTouch UltraSoft LancetsIndications:U ncontrolled type 2 diabetes mellitus with hyperglycemia (HCC) Use with glocometer to check blood sugar two to four times daily 100 Each 11 02/23/2024 Active documented as of this encounter (statuses as of 02/24/2024) Active Problems Problem Noted Date Diagnosed Date Diabetic peripheral neuropathy 12/12/2023 Class 2 severe obesity due t o excess calories with serious comorbidity and body mass index (BMI) of 35.0 to 35.9 in adult 09/25/2023 BPH with obstruction/lower urinary tract symptom s 09/25/2023 SHANNON (obstructive sleep apnea) 03/27/2023 Food insecurity 03/24/2023 Overview: Per [facility] Protocol Type 2 diabetes mellitus wit h hemoglobin A1c goal of less than 7.0% 03/14/2023 HTN, goal below 130/80 03/14/2023 documented as of this encounter (statuses as of 02/24/2024) Immunizations Name Administration Dates Next Due COVID-19 mRNA, LNP-s, No Pre serve, 2-Dose Series (Pfizer) 06/01/2021,06/28/2020,05/23/2020 Pneumococcal Conjugate Vacci ne, 20-valent ([id number]) 09/25/2023 Seasonal Influenza Vac., MDV , IM, [...] on file documented as of this encounter Plan of Treatment Upcoming Encounters Date Type Department Care Team (Late st Contact Info) Description 03/29/2024 10:40 AM EST Office Visit Family Practice [facility] [address] [facility] [place] [address] Maya Cutler MD [address] [facility] [place] [address] 04/26/2024 11:00 AM EST Office Visit Pharmacy, [facility] [address] [facility] [place] [address] Pharmacist2, [facility] [address] [facility] [place] [address] 07/07/2024 10:00 AM EST Office Visit Urology Zeinab Jacobo [address] [place] [address] Valeriano Rizvi Jr., MD [address] [place] [address] 07/07/2024 11:20 AM EST Office Visit Sleep Disorders Ctr [facility] [address] [place] [address] Sherrie Jones, DO [address] [place] [address] Pending Results Name Type Priority Associated Diagnoses Date /Time HEMOGLOBIN A1C Lab Routine Type 2 diabetes mellitus with hemoglobin A1c goal of less than 7.0% ([facility]) 02/24/2024 9:19 AM EDT BASIC METABOLIC PANEL Lab Routine Type 2 diabetes mellitus with hemoglobin A1c goal of less than 7.0% ([facility]) 02/24/2024 9:19 AM EDT Health Maintenance Due Date Last Done Comments [...] as of this encounter Visit Diagnoses Diagnosis Type 2 diabetes mellitus with hemoglobin A1c goal of less than 7.0% (HCC) documented in this encounter Care Teams Fruit Harvester Machine Operator Relationship Specialty Start Date End Date Maya Cutler MD [address] [place] [address] PCP - General Family Medicine 03/27/23 documented as of this encounter
--- OUTSIDE RECORDS SUMMARY | 2024-03-15 15:52 | External Medical Summary | Summary of Care ---
Author Name Unknown Organization [facility] Address [address] [place] [address] Phone [phone] Care Team Providers Care Hematology Nurse Name Role Phone Maya Cutler MD Primary Care Provider [phone] Encounter Details Date Type Department Care Team ([facility] Contact Info) Description 01/09/2024 Orders Only PATIENT PORTAL DO NOT DELETE THIS DEPT USED BY [place] A[place] [id number] Allergies Active Allergy Reactions Criticality Noted Date Comments Codeine 03/27/2023 Gets anxiety Latex 03/14/2023 documented as of this encounter (statuses as of 01/09/2024) Medications Medication Sig Dispensed Refills Start Date [...] as of this encounter (statuses as of 01/09/2024) Active Problems Problem Noted Date Diagnosed Date Diabetic peripheral neuropathy 12/12/2023 Class 2 severe obesity due t o excess calories with serious comorbidity and body mass index (BMI) of 35.0 to 35.9 in adult 09/25/2023 BPH with obstruction/lower urinary tract symptom s 09/25/2023 SHANNON (obstructive sleep apnea) 03/27/2023 Food insecurity 03/24/2023 Overview: Per [facility] Protocol Type 2 diabetes mellitus wit h hemoglobin A1c goal of less than 7.0% 03/14/2023 HTN, goal below 130/80 03/14/2023 documented as of this encounter (statuses as of 01/09/2024) Immunizations Name Administration Dates Next Due COVID-19 mRNA, LNP-s, No Pre serve, 2-Dose Series ([employer]) 06/01/2021,06/28/2020,05/23/2020 Pneumococcal Conjugate Vacci ne, 20-valent ([id number]) 09/25/2023 Seasonal Influenza Virus Vac cine, Unspecified [...] 01/09/2024 10:30 AM EDT Imaging Vascular Lab, [facility] [address] [place] [address] 03/29/2024 10:40 AM EST Office Visit Family Practice [facility] [address] [facility] [place] [address] Maya Cutler MD [address] [facility] [place] [address] 04/26/2024 11:00 AM EST Office Visit Pharmacy, [facility] [address] [facility] [place] [address] Pharmacist2, [facility] [address] [facility] [place] [address] 07/07/2024 10:00 AM EST Office Visit Urology Zeinab Jacobo [address] [place] [address] Valeriano Rizvi Jr., MD [address] [address] 07/07/2024 11:20 AM EST Office Visit Sleep Disorders Ctr [facility] [address] [place] [phone] Sherrie Jones, [address] [place] [address] Health Maintenance Due Date Last Done Comments HIV Screening 01/29/1975 Hepatitis C Screening 1979 Cologuard 2006 Fecal Occult Blood Test 2006 Sigmoidoscopy 2006 Influenza Vaccine (FLU shot) (#1) 2024 03/12/2023, 01/25/2014 Albumin/Creatinine Ratio 03/27/2024 03/27/2023 HbA1c 03/27/2024 09/25/2023, 05/13, 03/27/2023, Additional history exists Diabetic Eye Exam 06/03/2024 06/03/2023 GFR 06/06/2024 06/06/2023, 07/2022, 12/19/2022 Diabetic Foot Exam 09/24/2024 09/25/2023 [...] Not on filedocumented as of this encounter Care Teams Hematology Nurse Relationship Specialty Start Date End Date Maya Cutler MD [address] [place] [address] PCP - General Family Medicine 03/27/23 documented as of this encounter
--- OUTSIDE RECORDS SUMMARY | 2024-03-15 15:52 | External Medical Summary | Summary of Care ---
Author Name Unknown Organization [facility] Address [address] [place] [address] Phone [phone] Care Team Providers Care Dairy Bacteriologist Name Role Phone Maya Cutler MD Primary Care Provider [phone] Reason for Visit * Reason Onset Date Comments Medication Refill 02/21/2024 Encounter Details Date Type Department Care Team ([facility] st Contact Info) Description 02/21/2024 Refill General Internal Medicine [facility] 200 [place] [address] John Schuster PA-C [address] [place] [address] [place] [address] Uncontrolled type 2 diabetes mellitus with hyperglycemia (HCC) Allergies Active Allergy Reactions Criticality Noted Date Comments Codeine 03/27/2023 Gets anxiety Latex 03/14/2023 documented as of this encounter (statuses as of 02/23/2024) Medications Medication Sig Dispensed Refills Start Date [...] Kit 03/17/2023 Active Glucose Blood In Vitro StripIndications:Un [...] 1 Each 1 01/07/2024 Active OneTouch UltraSoft LancetsIndications: Uncontrolled type 2 diabetes mellitus with hyperglycemia (HCC) Use with glocometer to check blood sugar two to four times daily 100 Each 11 02/23/2024 Active OneTouch UltraSoft LancetsIndications: Uncontrolled type 2 diabetes mellitus with hyperglycemia (HCC) Use with glocometer to check blood sugar two to four times daily 100 Each 11 03/17/2023 Discontinue d(Refill) documented as of this encounter (statuses as of 02/23/2024) Active Problems Problem Noted Date Diagnosed Date Diabetic peripheral neuropathy 12/12/2023 Class 2 severe obesity due t o excess calories with serious comorbidity and body mass index (BMI) of 35.0 to 35.9 in adult 09/25/2023 BPH with obstruction/lower urinary tract symptom s 09/25/2023 SHANNON (obstructive sleep apnea) 03/27/2023 Food insecurity 03/24/2023 Overview: Per [facility] Protocol Type 2 diabetes mellitus wit h hemoglobin A1c goal of less than 7.0% 03/14/2023 HTN, goal below 130/80 03/14/2023 documented as of this encounter (statuses as of 02/23/2024) Immunizations Name Administration Dates Next Due COVID-19 mRNA, LNP-s, No Pre serve, 2-Dose Series (Pfizer) 06/01/2021,06/28/2020,05/23/2020 Pneumococcal Conjugate Vacci ne, 20-valent ([id number]) 09/25/2023 Seasonal Influenza Vac., MDV , IM, [...] encounter Miscellaneous Notes * Telephone Encounter - Neris Slaughter RPh - 02/23/2024 11:33 AM EDT Signed Prescriptions: Disp Refills OneTouch UltraSoft Lancets 100 Ea*11 Sig: Use with glocometer tocheck blood sugar two to four times dailyAuthorizing Provider: Paresh CUTLER User: NERIS SLAUGHTER documented in this encounter Plan of Treatment Upcoming Encounters Date Type Department Care Team (Late st Contact Info) Description 03/29/2024 10:40 AM EST [facility] [address] [place] [address] Maya Cutler MD 200 [facility] [place] [address] 04/26/2024 11:00 AM EST Office Visit Pharmacy, [facility] [address] [place] [address] Pharmacist2, [facility] [address] [place] [address] 07/07/2024 10:00 AM EST Office Visit Urology Zeinab Jacobo [address] [place] [address] Valeriano Rizvi Jr., MD [address] [place] [address] 07/07/2024 11:20 AM EST Office Visit Sleep Disorders Ctr [facility] 132 [facility] [place] [phone] Sherrie Jones DO [address] [place] [address] Health Maintenance Due Date Last Done Comments [...] (HCC) documented in this encounter Care Teams Dairy Bacteriologist Relationship Specialty Start Date End Date Maya Cutler MD [address] [place] [address] PCP - General Family Medicine 03/27/23 documented as of this encounter
--- OUTSIDE RECORDS SUMMARY | 2024-03-15 15:52 | External Medical Summary ---
Author Name Unknown Address Unknown Organization K09:[facility] [place] [address] Laboratory Report Ordering Provider Test Date Status 01/16/2024 09:10:15 Final Observation Date Value Abnormality Reference (Units ) Status BUN 01/16/2024 09:10:15 12 6-20 (mg/dL) Final Creatinine 01/16/2024 09:10:15 0.7 0.6-1.2 (mg/dL) Final Glomerular filtration rate/1.73 sq M.predicted [Volume Rate/Area] in Serum, Plasma or Blood by Creatinine-based formula (CKD-EPI) 01/16/2024 09:10:15 >90 >=60 (mL/min) Final eGFR is calculated based on the CKD-EPI 2020 equation. Sodium 01/16/2024 09:10:15 140 135-146 (m mol/L) Final Potassium 01/16/2024 09:10:15 5.3 Above high normal 3. 5-5.1 (mmol/L) Final Cl 01/16/2024 09:10:15 104 98-107 (mm ol/L) Final CO2 01/16/2024 09:10:15 25 22-32 (mmo l/L) Final Anion gap 01/16/2024 09:10:15 11 7-15 (mmol /L) Final Glucose 01/16/2024 09:10:15 138 Above high normal 70 -120 (mg/dL) Final Calcium 01/16/2024 09:10:15 9.9 8.4-10.2 ( mg/dL) Final Performing Location [facility] [place] [address]
--- OUTSIDE RECORDS SUMMARY | 2024-03-15 15:52 | External Medical Summary ---
Author Name Unknown Address Unknown Organization K01:[facility] [place] [address] [place] [address] Laboratory Report Ordering Provider Test Date Status 01/16/2024 09:10:15 Final Observation Date Value Abnormality Reference (Units ) Status Erythrocyte sedimentation rate by Photometric method 01/16/2024 09:10:15 9 <20 (mm/hour) Final Performing Location [facility] [place] [address] [place] [address]
--- OUTSIDE RECORDS SUMMARY | 2024-03-15 15:52 | External Medical Summary ---
Author Name Unknown Address Unknown Organization K01:[facility] [place] [address] [facility] [address] Laboratory Report Ordering Provider Test Date Status BAILEE PINO 02/24/2024 09:19:23 Final Observation Date Value Abnormality Reference (Units ) Status HbA1C 02/24/2024 09:19:23 8.3 Above high normal 4. 0-5.6 (%) Final The use of HbA1c to monitor glycemic status is based on normal hemoglobin and HbA composition. This test should not be used in patients with abnormal hemoglobin that affects the half life of the red blood cell or the in vivo glycation rates. Glucose, estimated average 02/24/2024 09:19:23 192 Above high normal <126 (mg/dL) Fran smith Performing Location [facility] [place] - [address] [place] [address]
--- OUTSIDE RECORDS SUMMARY | 2024-03-15 15:52 | External Medical Summary | Summary of Care ---
Author Name Unknown Organization [facility] Address [address] [place] [address] Phone [phone] Care Team Providers Care Corrections Corporal Name Role Phone Maya Cutler MD Primary Care Provider [phone] Reason for Visit * Reason Comments Outpatient Testing Encounter Details Date Type Department Care Team ([facility] st Contact Info) Description 01/16/2024 9:10 AM EDT Laboratory Laboratory [facility] [address] [place] [address] [facility] [address] [place] [address] Pain of right lower leg Allergies Active Allergy Reactions Criticality Noted Date Comments Codeine 03/27/2023 Gets anxiety Latex 03/14/2023 documented as of this encounter (statuses as of 01/16/2024) Medications Medication Sig Dispensed Refills Start Date [...] as of this encounter (statuses as of 01/16/2024) Active Problems Problem Noted Date Diagnosed Date [...] as of this encounter (statuses as of 01/16/2024) Immunizations Name Administration Dates Next Due COVID-19 mRNA, LNP-s, No Pre serve, 2-Dose Series (Pfizer) 06/01/2021,06/28/2020,05/23/2020 Pneumococcal Conjugate Vacci ne, 20-valent ([id number]) 09/25/2023 Seasonal Influenza Virus Vac cine, Unspecified [...] 10:40 AM EST Office Visit Family Practice [facility] [address] [facility] [place] [address] Maya Cutler MD [address] [facility] [place] [address] 04/26/2024 11:00 AM EST Office Visit Pharmacy, [facility] [address] [facility] [place] [address] Pharmacist2, [facility] [address] [facility] [place] [address] 07/07/2024 10:00 AM EST Office Visit Urology Zeinab Jacobo [address] [place] [address] Valeriano Rizvi Jr., MD [address] [place] [address] 07/07/2024 11:20 AM EST Office Visit [facility] Disorders [facility] [address] [place] [address] Sherrie Jones, DO [address] [place] [address] Pending Results Name Type Priority Associated Diagnoses Date /Time MAGNESIUM Lab Routine Pain of right lower leg 01/16/2024 9:10 AM EDT ERYTHROCYTE SEDIMENTATION RATE (ESR) Lab Routine Pain of right lower leg 01/16/2024 9:10 AM EDT BASIC METABOLIC PANEL Lab Routine Pain of right lower leg 01/16/2024 9:10 AM EDT Health Maintenance Due Date Last Done Comments HIV Screening 01/29/1976 Hepatitis C Screening 1979 Cologuard 2006 Fecal Occult Blood Test 2006 Sigmoidoscopy 2006 Influenza Vaccine (FLU shot) (#1) 2024 03/12/2023, 01/25/2014 Albumin/Creatinine Ratio 03/27/2024 03/27/2023 HbA1c 03/27/2024 09/25/2023, 05/13, 03/27/2023, Additional history exists Diabetic Eye Exam 06/03/2024 06/03/2023 GFR 06/06/2024 06/06/2023, 0 07/2022, 12/19/2022 Diabetic Foot Exam 09/24/2024 09/25/2023 [...] Not on filedocumented as of this encounter Procedures Procedure Name Priority Date/Time Associated Diagnosis Comments CBC Routine 01/16/2024 9:10 AM EDT Pain of right lower leg documented in this encounter Results * (ABNORMAL) CBC (01/16/2024 9:10 AM EDT) WBC 6.37 4.00 - 10.80 K/uL 01/16/2024 9:23 AM EDT [facility] [place] [address] RBC 4.25 4.50 - 5.25 M/uL 01/16/2024 9:23 AM EDT [facility] [place] [address] HGB 12.4(L) 14.0 - 16.8 g/dL 01/16/2024 9:23 AM EDT [facility] HCT 37.1(L) 40.0 - 48.4 % 01/16/2024 9:23 AM EDT [facility] [place] 56 MCV 87.3 82.0 - 99.5 fL 01/16/2024 9:23 AM EDT [facility] [place] 56 MCH 29.2 27.0 - 34.0 pg 01/16/2024 9:23 AM EDT [facility] [place] [facility] MCHC 33.4 32.0 - 36.0 g/dL 01/16/2024 9:23 AM EDT [facility] [place] [facility] RDW 14.5 11.5 - 15.5 % 01/16/2024 9:23 AM EDT [facility] [place] 56 PLT 214 140 - 400 K/uL 01/16/2024 9:23 AM EDT [facility] [place] 56 MPV 10.0 6.6 - 11.1 fL 01/16/2024 9:23 AM EDT [facility] [place] 56 Blood Venous blood specimen / Unknown Venipuncture / Unknown 01/16/2024 9:10 AM EDT 01/16/2024 9:10 AM EDT Nely A Rine PA-C LAB BLOOD ORDERABLES [facility] [place] 56-02 [address] [facility] [address] documented in this encounter Visit Diagnoses Diagnosis Pain of right lower leg Pain in limb documented in this encounter Care Teams Corrections Corporal Relationship Specialty Start Date End Date [facility] Cutler MD [address] [facility] [address] PCP - General Family Medicine 03/27/23 documented as of this encounter
--- OUTSIDE RECORDS SUMMARY | 2024-03-15 15:53 | External Medical Summary | Summary of Care ---
Author Name Unknown Organization [facility] Address [address] [place] [address] Phone [phone] Care Team Providers Care Manager Ent Name Role Phone Maya Cutler MD Primary Care Provider [phone] Reason for Visit * Reason Onset Date Comments Immunizations 09/25/2023 Encounter Details Date Type Department Care Team ([facility] st Contact Info) Description 09/25/2023 11:00 AM EDT Office Visit Family [facility] [address] [facility] [place] [address] Maya Cutler MD [address] [place] [address] Type 2 diabetes mellitus with hemoglobin A1c goal of less than 7.0% (HCC)*; Class 1 obesity due to excess calories with serious comorbidity and body mass index (BMI) of 33.0 to 33.9 in adult; HTN, goal below 130/80; SHANNON (obstructive sleep apnea); BPH with obstruction/lower urinary tract symptoms; Need for pneumococcal vaccination; Need for gkbbuidqcc-pnibqcq-zh rtussis (Tdap) vaccine Allergies Active Allergy Reactions Criticality Noted Date Comments Codeine 03/27/2023 Gets anxiety Latex 03/14/2023 documented as of this encounter (statuses as of 09/25/2023) Medications Medication Sig Dispensed Refills Start Date End Date Status Lisinopril 20 MG Oral Tablet (Prinivil) Take 1 Tablet by mouth in the morning. 0 Active metFORMIN HCl ER 500 MG Oral Tablet Extended Release 24 Hour (Glucophage XR)Indications:Unc ontrolled type 2 diabetes mellitus with hyperglycemia (HCC) Take 2 Tablets by mouth in the morning and 2 Tablets in the evening. 360 Tablet 3 03/14/2023 Active OneTouch Ultra 2 w/Device KitIndications:Unc ontrolled type 2 diabetes mellitus with hyperglycemia (HCC) Use to check blood sugar two to four times daily 1 Kit 0 03/17/2023 Active OneTouch UltraSoft LancetsIndications :Uncontrolled type 2 diabetes mellitus with hyperglycemia (HCC) Use with glocometer to check blood sugar two to four times daily 100 Each 11 03/17/2023 Active Glucose Blood In Vitro StripIndications:U ncontrolled type 2 diabetes mellitus with hyperglycemia (HCC) Use with glucometer to check blood sugar two to four times daily 100 Strip 11 03/17/2023 Active Rosuvastatin Calcium 40 MG Oral Tablet (Crestor)Indicatio ns:Dyslipidemia, goal LDL below 70 Take 1 Tablet by mouth in the morning. 90 Tablet 3 03/27/2023 Active Triamcinolone Acetonide 0.1 % External Cream (Aristocort) Apply topically to affected area 2 times a day. To affected area. 15 g 0 04/10/2023 Active Terbinafine HCl 1 % External Cream (LamISIL AT ATHLETE'S FOOT)Indications:T inea pedis of both feet Apply topically to affected area 2 times a day. Apply to top of feet and legs twice daily for two weeks 30 g 1 05/13/2023 Active Ozempic (1 MG/DOSE) 4 MG/3ML Subcutaneous Solution Pen-injector (Semaglutide (1 MG/DOSE))Indicatio ns:Type 2 diabetes mellitus with hemoglobin A1c goal of less than 7.0% ([facility]) Inject 1 mg under the skin once a week. 3 mL 5 06/02/2023 Active Betamethasone Dipropionate Aug 0.05 % External Cream (Diprolene AF)Indications:Chr onic pruritic rash in adult Apply topically to affected area 2 times a day. To affected area. 50 g 3 06/13/2023 Active glyBURIDE 5 MG Oral Tablet (Diabeta)Indicatio ns:Uncontrolled type 2 diabetes mellitus with hyperglycemia (HCC) Take 1 Tablet by mouth daily with breakfast. 30 Tablet 11 09/08/2023 Active Tamsulosin HCl 0.4 MG Oral Capsule (Flomax)Indication s:BPH with obstruction/lower urinary tract symptoms TAKE 1 CAPSULE BY MOUTH EVERYDAY AT BEDTIME 30 Capsule 5 09/25/2023 Active Pflftsa-Srjbaq-Prc ll Pertussis 5-2.5-18.5 LF-MCG/0.5 Suspension Prefilled Syringe (Boostrix)Indicati ons:Need for diphtheria-tetanus -pertussis (Tdap) vaccine Inject 0.5 mL into a large muscle once for 1 dose. As directed 0.5 mL 0 09/25/2023 Active Nirmatrelvir&Riton avir 300/100 20 x 150 MG & 10 x 100MG Oral Tablet Therapy Pack (Paxlovid (300/100)) Take 2 pink tablets of Nirmatrelvir and 1 white tablet of Ritonavir two times a day by mouth. 30 Tablet 0 07/22/2023 Discontinu ed(Medicat ion List Clean Up) Tamsulosin HCl 0.4 MG Oral Capsule (Flomax)Indication s:Urinary frequency,Nocturia ,Urinary retention TAKE 1 CAPSULE BY MOUTH EVERYDAY AT BEDTIME 30 Capsule 5 09/08/2023 4 Discontinu ed(Refill) documented as of this encounter (statuses as of 09/25/2023) Active Problems Problem Noted Date Diagnosed Date Class 1 obesity due to exces s calories with serious comorbidity and body mass index (BMI) of 33.0 to 33.9 in adult 09/25/2023 BPH with obstruction/lower urinary tract symptom s 09/25/2023 SHANNON (obstructive sleep apnea) 03/27/2023 Food insecurity 03/24/2023 Overview: Per [facility] Protocol Type 2 diabetes mellitus wit h hemoglobin A1c goal of less than 7.0% 03/14/2023 HTN, goal below 130/80 03/14/2023 documented as of this encounter (statuses as of 09/25/2023) Immunizations Name Administration Dates Next Due COVID-19 mRNA, LNP-s, No Pre serve, 2-Dose Series (SNOBSWAP) 06/01/2021,06/28/2020,05/23/2020 Pneumococcal Conjugate Vacci ne, 20-valent ([id number]) 09/25/2023 Seasonal Influenza Virus Vac cine, Unspecified Formulation 03/12/2023 TDAP (age 10 and older)(Boostrix) 09/25/2023 documented as of this encounter Social History [...] you got the money to buy more. Often true 03/13/20 23 Within the past 12 months, t he food you bought just didn't last and you didn't have money to get more. Often true 03/13/2023 Sex and Gender Information Value Date Recorded Sex Assigned at Male 03/13/2023 9:59 AM EDT Gender Identity Male 03/13/2023 9:59 AM EDT Sexual Orientation Straight 03/13/2023 9: 59 AM EDT Job Start Date Occupation Industry Not on file Not on file Not on file documented as of this encounter Last Filed Vital Signs Vital Sign Reading Time Taken Comments Blood Pressure 126/66 09/25/2023 10:57 AM EDT Pulse 91 09/25/2023 10:57 AM EDT Temperature 36 C (96.8 F) 09/25/2023 10:57 AM EDT Respiratory Rate 18 09/25/2023 10:57 AM EDT Oxygen Saturation 98% 09/25/2023 10:57 AM EDT Inhaled Oxygen Concentration - - Weight 104.3 kg (230 lb) 09/25/2023 10:57 AM EDT Height - - Body Mass Index 33.97 07/07/2023 2:01 PM EST documented in this encounter Patient Instructions * Patient Instructions* Marisol Ramos LPN - 09/25/2023 11:00 AM EDT ~~PATIENT INSTRUCTIONS FOR PNEUMOCOCCAL VACCINE~~ Possible side effects of pneumococcal vaccine, (pneumonia shot), are usually mild and can include: 1. Soreness or redness at injection site 2. Low grade fever 3. Body aches You may use Tylenol/Acetaminophen as needed for these symptoms. LET YOUR DOCTOR KNOW IMMEDIATELY IF YOU HAVE DIFFICULTY BREATHING OR SWALLOWING, EXPERIENCE ITCHINGOF FEET OR HANDS, HAVE SWELLING OF EYES, FACE OR INSIDE OF NOSE. ~~PATIENT INSTRUCTIONS FOR TDAP VACCINE~~ Possible side effects of TDAP vaccine, (tetanus shot), are usually mild and can include: 1. Soreness or redness at injection site 2. Low grade fever 3. Body aches You may use a fever / pain reducing medication as needed for these symptoms. LET YOUR DOCTOR KNOW IMMEDIATELY IF YOU HAVE DIFFICULTY BREATHING OR SWALLOWING, EXPERIENCE ITCHINGOF FEET OR HANDS, HAVE SWELLING OF EYES, FACE OR INSIDE OF NOSE. Diabetes: Keeping Feet Healthy Inspect your feet every day for signs of a problem. Diabetes can damage nerves in your feet and cause neuropathy. This condition makes it hard for you to feel injuries or sore spots. Diabetes can also change blood flow, making it harder for small problems, like a blister, to heal properly. In fact, minor injuries can quickly become serious infections that send you to the hospital. Practice self-care to protect your feet and keep them healthy. Take Special Care Inspect your feet daily for problems such as redness, blisters, cracks, dry skin, or numbness. Use a mirror to see the bottoms of your feet. Or, ask for help. Manage your diabetes. Monitor and control your blood sugar. Take all your medications as prescribed. Avoid walking barefoot, even indoors. Wash your feet with warm water and mild soap. Dry well, especially between toes. Dont treat corns or calluses yourself. Talk to your doctor or product analyst (a doctor who specializes in foot care) if you need assistance trimming your toenails. Use moisturizing cream or lotion if you have dry skin, but dont use it between toes. Dont use heating pads on your feet. If you have neuropathy, you could get a burn and not feel it. Stop smoking. Smoking restricts blood flow and can make it harder for wounds to heal. Have Regular Checkups Foot problems can develop quickly. So be sure to follow your healthcare teams schedule for regular checkups. During office visits, take off your shoes and socks as soon as you get in the exam room. Ask your healthcare provider to examine your feet for problems. This will make it easier to find and treat small skin irritations before they get worse. Regular checkups can also help keep track of the blood flow and feeling in your feet. If you have neuropathy, you may need to have checkups more often. Wear Proper Footwear Wearing proper footwear is very important. If areas of your feet have been damaged by too much pressure, your healthcare provider may recommend changing your footwear. In some cases, avoiding high heels or tight work boots may be all thats needed. Or, your healthcare provider may recommend special shoes or custom inserts. These help protect your feet and keep existing irritations from getting worse. If you need special footwear, ask your healthcare provider if you qualify for [employer] diabetic shoe program. Make Sure Shoes and Socks Fit Any pair of shoes--new or old--should feel comfortable as soon as you put them on. There shouldnt be any rubbing when you walk. Wear the right shoe for any activity. For instance, a running shoe is designed to keep your feet injury-free while jogging. Buy shoes at the end of the day, when your feet are larger. Make sure they provide support without feeling too loose. Make sure your socks fit, t oo. Wear soft, seamless, well-padded socks for activity. Cotton or microfiber socks are best to help to absorb sweat. To protect your feet, avoid shoes that are open-toed or open-heeled. If you have questions about what kinds of shoes and socks are best, talk to your healthcare team. Get Regular Exercise Regular exercise improves blood flow in your feet. It also increases foot strength and flexibility.Gentle exercises, like walking or riding a stationary bicycle, are best. You can also do special foot exercises. Just be sure to talk with your healthcare provider before starting any exercise program. Also mention if any exercise causes pain, redness, or other signs of foot problems. Note: If you have any kind of break in the skin of your foot or ankle, keep the area clean. Then call your doctor--especially if the area doesnt appear to be healing. [id number] [employer], [address] [place] [address], [place] [address]. All rights reserved. This information is not intended as a substitute for professional medical care. Always follow your healthcare professional's instructions. documented in this encounter Progress Notes * Maya Cutler MD - 09/25/2023 11:06 AM EDT Subjective Chief Complaint Patient presents with Immunizations HPI: Ron Rose is a 63 year old male. Patient is unaccompanied. The following issues were addressed today: Patient with obesity, T2DM, hypertension, BPH, SHANNON on CPAP presents today for follow-up. was recently in the hospital. Has ESRD diagnosis and recently started on dialysis. Going everyother day. Has been very stressful for him. Due for Hgb A1c. He is following with [facility] pharmacy for DM management. Currently on Metformin 1000mgBID, glyburide 5mg daily, and Ozempic 1mg weekly. Reports his blood sugars are well-controlled and are running around 115 fasting. Highest it's been recently was 159. Denies episodes of hypoglycemia.States he tolerates Ozempic well other than occasional constipation and heartburn. Takes Tums as nee ded. Doing well on CPAP. Cannot sleep well without it. Follows with sleep medicine. Due for Tdap and pneumococcal vaccinations. Review of Systems: See HPI Objective BP 126/66 | Pulse 91 | Temp 36 C (96.8 F) (Tympanic) | Resp 18 | Wt 104.3 kg (230 lb) | SpO2 98% | BMI 33.97 kg/m | BSA 2.25 m Wt Readings from Last 3 Encounters: 09/25/23 104.3 kg (230 lb) 07/07/23 104.3 kg (230 lb) 06/13/23 103.9 kg (229 lb) BP Readings from Last 3 Encounters: 09/25/23 126/66 07/07/23 118/74 06/13/23 134/70 General: Well-appearing, no acute distress Cardiovascular: Regular rate and rhythm Respiratory: Good respiratory effort, breath sounds equal and clear to auscultation bilaterally Extremities: No edema Psychiatric: Appropriate mood and affect Assessment & Plan 1. Type 2 diabetes mellitus with hemoglobin A1c goal of less than 7.0% ([facility]) POC Hgb A1c today is 6.0% which is significantly improved. Continue current medications. - DIABETES FOOT EXAM - HEMOGLOBIN A1C, POINT OF CARE 2. Class 1 obesity due to excess calories with serious comorbidity and body mass index (BMI) of 33.0 to 33.9 in adult Diet and exercise discussed. Continue Ozempic. 3. HTN, goal below 130/80 Well-controlled. Continue current medication(s). 4. SHANNON (obstructive sleep apnea) Stable. Compliant with CPAP. 5. BPH with obstruction/lower urinary tract symptoms Well-controlled. Continue current medication(s). - Tamsulosin HCl 0.4 MG Oral Capsule (Flomax); TAKE 1 CAPSULE BY MOUTH EVERYDAY AT BEDTIME Dispense: 30 Capsule; Refill: 5 6. Need for pneumococcal vaccination - PNEUMOCOCCAL VACC, PCV20, IM ([id number]) 7. Need for aueemcdmyh-ovlrmji-ubgkehsff (Tdap) vaccine - TDAP (AGE 10 AND OLDER)(BOOSTRIX) - Yhedpko-Fbjovl-Sdcbw Pertussis 5-2.5-18.5 LF-MCG/0.5 Suspension Prefilled Syringe (Boostrix); Inject 0.5 mL into a large muscle once for 1 dose. As directed Dispense: 0.5 mL; Refill: 0 Return in about 6 months (around 03/27/2024) for routine follow-up. This note was electronically signed by Maya Cutler MD * Marisol Ramos LPN - 09/25/2023 10:59 AM EDT Immunization Administration Documentation Time Out Procedure Performed: Yes Patient Identified (Ask Name/Date of ): Yes Does the patient have a fever greater than 101 degrees today? No Patient allergic to latex? No VFC Stock: No Immunization(s) verified: Yes, Immunization Name: Prevnar 20 (PCV20) and Tdap (Boostrix), VIS Sheet(s) given: Yes Verified Side and Site: Yes Verified Shot(s) with Parent(s)/Patient: Yes DM Foot Exam completed today. Provider aware. Marisol Ramos LPN Socks and Shoes Removed for Annual Diabetic Foot Screening RIGHT FOOT: No Reddened, Cracking, Or Open Areas Noted. RIGHT Dorsalis Pedis Pulse: Palpable RIGHT Posterior Tibial Pulse: Palpable RIGHT Monofilament:Patient reports feeling monofilament pressure on plantar surface of foot LEFT FOOT: No Reddened, Cracking or Open Areas Noted. LEFT Dorsalis Pedis Pulse: Unable to locate LEFT Posterior Tibial Pulse: Unable to locate LEFT Monofilament:Patient reports difficulty feeling monofilament at Great toe- plantar surface, Third toe-plantar surface, Ball of Foot-base of great toe, Ball of Foot-base of 3rd toe, and Ball of Foot-base of little toe Do you need diabetic shoes: No documented in this encounter Nursing Notes * Marisol Ramos LPN - 09/25/2023 10:56 AM EDT JamesGerman Rose presents for 6 month recheck. Medications & HM reviewed. documented in this encounter Plan of Treatment Upcoming Encounters Date Type Department Care Team (Late st Contact Info) Description 12/15/2023 11:00 AM EDT Office Visit Pharmacy, [facility] [address] [place] [address] Pharmacist2, [facility] [address] [place] [address] 03/29/2024 10:40 AM EST Office Visit Family Practice [facility] [address] [place] [address] Maya Cutler MD [address] [place] [address] 07/07/2024 10:00 AM EST Office Visit Urology Zeinab Jacobo [address] [place] [id number] [place], Valeriano Wang MD [address] [place] [address] 07/07/2024 11:20 AM EST Office Visit Sleep Disorders Ctr [facility] [address] [place] [address] Sherrie Jones, [address] [place] [address] Health Maintenance Due Date Last Done Comments Depression Screening 1973 HIV Screening 01/29/1976 Hepatitis C Screening 1979 Cologuard 2006 Fecal Occult Blood Test 2006 Sigmoidoscopy 2006 Zoster Vaccines (1 of 2) 2011 Albumin/Creatinine Ratio 03/27/2024 03/27/2023 HbA1c 03/27/2024 09/25/2023, 05/13, 03/27/2023, Additional history exists Diabetic Eye Exam 06/03/2024 06/03/2023 GFR 06/06/2024 06/06/2023, 07/2022, 12/19/2022 Diabetic Foot Exam 09/24/2024 09/25/2023 Lipid Panel 03/27/2028 03/27/2023, 12/19/2022 Colonoscopy 05/12/2029 05/12/2019 Colorectal Cancer Screening 05/12/2029 DTaP,Tdap,and Td Vaccines (2 - Td or Tdap) 09/24/2033 09/25/2023 COVID-19 Vaccine Completed 03/12/2023, , 06/28/2020, Additional history exists Influenza Vaccine (FLU shot) Completed 03/12/2023, 01/25/2014 Pneumococcal Vaccine: Pediatrics (0 to 5 Years) and At-Risk Patients (6 to 64 Years) Completed 09/25/2023 GARDASIL-HPV IMMUNIZATION SERIES Aged Out No longer eligible based on patient's age to complete this topic Hepatitis B Aged Out No longer eligi ble based on patient's age to complete this topic MENINGOCOCCAL (MENACTRA/MENVEO) Aged Out No longer eligible based on patient's age to complete this topic documented as of this encounter Medical Devices Not on filedocumented as of this encounter Procedures Procedure Name Priority Date/Time Associated Diagnosis Comments HEMOGLOBIN A1C, POINT OF CARE Routine 09/25/2023 10:25 AM EDT Type 2 diabetes mellitus with hemoglobin A1c goal of less than 7.0% (HCC) documented in this encounter Results * (ABNORMAL) HEMOGLOBIN A1C, POINT OF CARE (09/25/2023 10:25 AM EDT) Hemoglobin A1c 6.0(H) 4.0 - 5.6 % 09/25/2023 11:21 AM EDT [facility] 56-02 Blood 09/25/2023 10:2 5 AM EDT 09/25/2023 11:21 AM EDT Maya Cutler MD LAB POINT OF CARE TE ST DOCKED DEVICE UNSOLICITED RESULTS [facility] [address] [place] [address] documented in this encounter Visit Diagnoses Diagnosis Type 2 diabetes mellitus with hemoglobin A1c goal of less than 7.0% (HCC)- Primary Class 1 obesity due to excess calories with serious comorbidity and body mass index (BMI) of 33.0 to 33.9 in adult HTN, goal below 130/80 Unspecified essential hypertension SHANNON (obstructive sleep apnea) Obstructive sleep apnea (adult) (pediatric) BPH with obstruction/lower urinary tract symptoms Hypertrophy of prostate with urinary obstruction and other lower urinary tract symptoms (LUTS) Need for pneumococcal vaccination Need for prophylactic vaccination against streptococcus pneumoniae (pneumococcus) Need for noqlhxsxlx-zrbviyd-znvoalxxo (Tdap) vaccine Need for prophylactic vaccination with combined ksewgmwhyg-jiampbo-arkmfqcmv (DTP) vaccine documented in this encounter Care Teams Manager Ent Relationship Specialty Start Date End Date Maya Cutler MD [address] [place] [address] PCP - General Family Medicine 03/27/23 documented as of this encounter"
--- OUTSIDE RECORDS SUMMARY | 2024-03-15 15:53 | External Medical Summary | Summary of Care ---
Author Name Unknown Organization [facility] Address [address] [place] [address] Phone [phone] Care Team Providers Care Javascript Front End Developer Name Role Phone Maya Cutler MD Primary Care Provider [phone] Reason for Visit * Reason Comments Follow Up Discuss medications for neuropathy Encounter Details Date Type Department Care Team (Late st Contact Info) Description 12/12/2023 12:40 PM EDT Office Visit Family Practice [facility] [address] [facility] [place] [address] Maya Cutler MD 200 [place] [address] Type 2 diabetes mellitus with hemoglobin A1c goal of less than 7.0% ([facility]; Diabetic peripheral neuropathy (HCC); Class 2 severe obesity due to excess calories with serious comorbidity and body mass index (BMI) of 35.0 to 35.9 in adult ([facility]); HTN, goal below 130/80; SHANNON (obstructive sleep apnea) Allergies Active Allergy Reactions Criticality Noted Date Comments Codeine 03/27/2023 Gets anxiety Latex 03/14/2023 documented as of this encounter (statuses as of 12/12/2023) Medications Medication Sig Dispensed Refills Start Date End Date Status Lisinopril 20 MG Oral Tablet (Prinivil) Take 1 Tablet by mouth in the morning. Active metFORMIN HCl ER 500 MG Oral Tablet Extended Release 24 Hour (Glucophage XR)Indications:Unc ontrolled type 2 diabetes mellitus with hyperglycemia (HCC) Take 2 Tablets by mouth in the morning and 2 Tablets in the evening. 360 Tablet 3 3 Active OneTouch Ultra 2 w/Device KitIndications:Unc ontrolled type 2 diabetes mellitus with hyperglycemia (HCC) Use to check blood sugar two to four times daily 1 Kit 3 Active OneTouch UltraSoft LancetsIndications :Uncontrolled type 2 diabetes mellitus with hyperglycemia (HCC) Use with glocometer to check blood sugar two to four times daily 100 Each 11 3 Active Glucose Blood In Vitro StripIndications:U ncontrolled type 2 diabetes mellitus with hyperglycemia (HCC) Use with glucometer to check blood sugar two to four times daily 100 Strip 11 3 Active Rosuvastatin Calcium 40 MG Oral Tablet (Crestor)Indicatio ns:Dyslipidemia, goal LDL below 70 Take 1 Tablet by mouth in the morning. 90 Tablet 3 3 Active Ozempic (1 MG/DOSE) 4 MG/3ML Subcutaneous Solution Pen-injector (Semaglutide (1 MG/DOSE))Indicatio ns:Type 2 diabetes mellitus with hemoglobin A1c goal of less than 7.0% (HCC) Inject 1 mg under the skin once a week. 3 mL 5 4 Active Additional Information Patient not taking.Reported on 12/12/2023 glyBURIDE 5 MG Oral Tablet (Diabeta)Indicatio ns:Uncontrolled type 2 diabetes mellitus with hyperglycemia (HCC) Take 1 Tablet by mouth daily with breakfast. 30 Tablet 11 4 Active Tamsulosin HCl 0.4 MG Oral Capsule (Flomax)Indication s:BPH with obstruction/lower urinary tract symptoms TAKE 1 CAPSULE BY MOUTH EVERYDAY AT BEDTIME 30 Capsule 5 4 Active Pregabalin 150 MG Oral Capsule (Lyrica)Indication s:Diabetic peripheral neuropathy (HCC) Take 1 Capsule by mouth in the morning and 1 Capsule before bedtime. 60 Capsule 11 4 Active Triamcinolone Acetonide 0.1 % External Cream (Aristocort) Apply topically to affected area 2 times a day. To affected area. 15 g 3 12/12/19 24 Discontinued Terbinafine HCl 1 % External Cream (LamISIL AT ATHLETE'S FOOT)Indications:T inea pedis of both feet Apply topically to affected area 2 times a day. Apply to top of feet and legs twice daily for two weeks 30 g 1 4 12/12/19 24 Discontinued Betamethasone Dipropionate Aug 0.05 % External Cream (Diprolene AF)Indications:Chr onic pruritic rash in adult Apply topically to affected area 2 times a day. To affected area. 50 g 3 4 12/12/19 24 Discontinued Apvygvr-Twssfz-Unu ll Pertussis 5-2.5-18.5 LF-MCG/0.5 Suspension Prefilled Syringe (Boostrix)Indicati ons:Need for diphtheria-tetanus -pertussis (Tdap) vaccine Inject 0.5 mL into a large muscle once for 1 dose. As directed 0.5 mL 4 12/12/19 24 Discontinued documented as of this encounter (statuses as of 12/12/2023) Active Problems Problem Noted Date Diagnosed Date Diabetic peripheral neuropathy 12/12/2023 Class 2 severe obesity due t o excess calories with serious comorbidity and body mass index (BMI) of 35.0 to 35.9 in adult 09/25/2023 BPH with obstruction/lower urinary tract symptom s 09/25/2023 SHANNON (obstructive sleep apnea) 03/27/2023 Food insecurity 03/24/2023 Overview: Per [facility] Protocol Type 2 diabetes mellitus wit h hemoglobin A1c goal of less than 7.0% 03/14/2023 HTN, goal below 130/80 03/14/2023 documented as of this encounter (statuses as of 12/12/2023) Immunizations Name Administration Dates Next Due COVID-19 mRNA, LNP-s, No Pre serve, 2-Dose Series ([employer]) 06/01/2021,06/28/2020,05/23/2020 Pneumococcal Conjugate Vacci ne, 20-valent ([id number]) 09/25/2023 Seasonal Influenza Virus Vac cine, Unspecified Formulation 03/12/2023 Seasonal Influenza, Split, I IV3, With Preserve, Inj 01/25/2014 TDAP (age 10 and older)(Boostrix) 09/25/2023 Zoster Vaccine Recombinant (Shingrix) 10/16/2023 documented as of this encounter Social History [...] Sign Reading Time Taken Comments Blood Pressure 124/68 12/12/2023 12:46 PM EDT Pulse 95 12/12/2023 12:46 PM EDT Temperature 35.9 C (96.7 F) 12/12/2023 12:46 PM E DT Respiratory Rate 16 12/12/2023 12:46 PM EDT Oxygen Saturation 95% 12/12/2023 12:46 PM EDT Inhaled Oxygen Concentration - - Weight 108 kg (238 lb) 12/12/2023 12:46 PM EDT Height 175.3 cm (5' 9") 12/12/2023 12:46 PM EDT Body Mass Index 35.15 12/12/2023 12:46 PM EDT documented in this encounter Progress Notes * Maya Cutler MD - 12/12/2023 12:55 PM EDT Subjective Chief Complaint Patient presents with Follow Up Discuss medications for neuropathy HPI: Ron Rose is a 63 year old male. Patient is unaccompanied. The following issues were addressed today: Would like to discuss neuropathy. Affecting feet, left a little worse than right. Gets numbness andtingling when he stands or walks for too long. Feels some pain like "sharp needles" when he is driving. Was on gabapentin in the past, cannot remember if it was effective. Had to stop Ozempic due to cost. Taking Metformin and glyburide and working on his diet. has been traveling so he is making meals on his own. Following with [facility] pharmacy. Last Hgb was well-controlled at 6.0%. Wearing CPAP every night. Review of Systems: See HPI Objective BP 124/68 | Pulse 95 | Temp 35.9 C (96.7 F) | Resp 16 | Ht 1.753 m (5' 9") | Wt 108 kg (238 lb)| SpO2 95% | BMI 35.15 kg/m | BSA 2.29 m Wt Readings from Last 3 Encounters: 12/12/23 108 kg (238 lb) 09/25/23 104.3 kg (230 lb) 07/07/23 104.3 kg (230 lb) BP Readings from Last 3 Encounters: 12/12/23 124/68 09/25/23 126/66 07/07/23 118/74 General: Well-appearing, no acute distress Cardiovascular: Regular rate and rhythm, no murmur Respiratory: Good respiratory effort, breath sounds equal and clear to auscultation bilaterally Extremities: No edema, feet without wounds, blisters, or calluses Neurological: Alert and oriented, no focal deficits noted Psychiatric: Appropriate mood and affect Assessment & Plan 1. Type 2 diabetes mellitus with hemoglobin A1c goal of less than 7.0% ([facility]) Well-controlled. Continue current medication(s). 2. Diabetic peripheral neuropathy (HCC) Will start Lyrica 150mg BID. Discussed potential side effects. Follow-up as schedule, will titrate as needed. Recommended he be evaluated for diabetic shoes. - Pregabalin 150 MG Oral Capsule (Lyrica); Take 1 Capsule by mouth in the morning and 1 Capsule before bedtime. Dispense: 60 Capsule; Refill: 11 3. Class 2 severe obesity due to excess calories with serious comorbidity and body mass index (BMI)of 35.0 to 35.9 in adult ([facility]) Continue to work on diet and exercise. 4. HTN, goal below 130/80 Well-controlled. Continue current medication(s). 5. SHANNON (obstructive sleep apnea) Stable. Compliant with CPAP. Return for follow-up as scheduled or sooner as needed. This note was electronically signed by Maya Cutler MD documented in this encounter Nursing Notes * Marta Oliver LPN - 12/12/2023 12:46 PM EDT The patient has been properly identified by confirmation of name and date of . Chief Complaint Patient presents with Follow Up Discuss medications for neuropathy documented in this encounter Plan of Treatment Upcoming Encounters Date Type Department Care Team (Late st Contact Info) Description 12/15/2023 11:00 AM EDT Office Visit Pharmacy, [facility] [address] [place] [address] [address] Pharmacist2, [facility] [address] [place] [address] [address] 03/29/2024 10:40 AM EST Office Visit [facility] [place] [address] [place] [address] Maya Cutler MD [address] [place] [address] 07/07/2024 10:00 AM EST Office Visit Urology [facility] [address] [place] [address] Valeriano Rizvi Jr., MD [address] [place] [address] 07/07/2024 11:20 AM EST [facility] [address] [place] [phone] Sherrie Jones DO [address] [place] [address] Health Maintenance Due Date Last Done Comments Depression Screening 1973 HIV Screening 01/29/1976 Hepatitis C Screening 1979 Cologuard 2006 Fecal Occult Blood Test 2006 Sigmoidoscopy 2006 Zoster Vaccines (2 of 2) 12/11/2023 10/16/2023 Influenza Vaccine (FLU shot) (#1) 2024 03/12/2023, [...] Patients (6 to 64 Years) Completed 09/25/2023 HPV (Gardasil) Vaccine Aged Out No lo [...] goal of less than 7.0% (HCC)- Primary Diabetic peripheral neuropathy (HCC) Type II or unspecified type diabetes mellitus with neurological manifestations, not stated as uncontrolled Class 2 severe obesity due to excess calories with serious comorbidity and body mass index (BMI) of 35.0 to 35.9 in adult (HCC) HTN, goal below 130/80 Unspecified essential hypertension SHANNON (obstructive sleep apnea) Obstructive sleep apnea (adult) (pediatric) documented in this encounter Care Teams Javascript Front End Developer Relationship Specialty Start Date End Date Maya Cutler MD [address] [facility] [place] [address] PCP - General Family Medicine 03/27/23 documented as of this encounter
--- OUTSIDE RECORDS SUMMARY | 2024-03-15 15:53 | External Medical Summary | Summary of Care ---
Author Name Unknown Organization [facility] Address [address] [place] [address] Phone [phone] Care Team Providers Care Mobile Home Servicer Name Role Phone Maya Cutler MD Primary Care Provider [phone] Reason for Visit * Reason Onset Date Comments Advice 10/17/2023 CPAP readings fo r DOT Encounter Details Date Type Department Care Team ([facility] st Contact Info) Description 10/17/2023 Telephone Access Center, [place] [address] [facility] *DO NOT REMOVE THIS DEPARTMENT* [place], [place] [id number] Services, Scheduling [address] [place] [address] Advice (CPAP readings for DOT) Allergies Active Allergy Reactions Criticality Noted Date Comments Codeine 03/27/2023 Gets anxiety Latex 03/14/2023 documented as of this encounter (statuses as of 10/20/2023) Medications Medication Sig Dispensed Refills Start Date [...] a day. To affected area. 15 g 04/10/2023 Active Terbinafine HCl 1 % External Cream (LamISIL AT ATHLETE'S FOOT)Indications:Tin ea pedis of both feet Apply topically to [...] Dipropionate Aug 0.05 % External Cream (Diprolene AF)Indications:Chron ic pruritic rash in adult Apply topically to affected area 2 times a day. To affected area. 50 g 3 06/13/2023 Active glyBURIDE 5 MG Oral Tablet (Diabeta)Indications :Uncontrolled type 2 diabetes mellitus with hyperglycemia (HCC) Take 1 Tablet by mouth daily with breakfast. 30 Tablet 11 09/08/2023 Active Tamsulosin HCl 0.4 MG Oral Capsule (Flomax)Indications: BPH with obstruction/lower urinary tract symptoms TAKE 1 CAPSULE BY MOUTH EVERYDAY AT BEDTIME 30 Capsule 5 09/25/2023 Active documented as of this encounter (statuses as of 10/20/2023) Active Problems Problem Noted Date Diagnosed Date [...] as of this encounter (statuses as of 10/20/2023) Immunizations Name Administration Dates Next Due COVID-19 mRNA, LNP-s, No Pre serve, 2-Dose Series (Pfizer) 06/01/2021,06/28/2020,05/23/2020 Pneumococcal Conjugate Vacci ne, 20-valent ([id number]) 09/25/2023 Seasonal Influenza Virus Vac cine, Unspecified [...] encounter Miscellaneous Notes * Telephone Encounter - Farida Keller LPN - 10/20/2023 11:14 AM EDT Pt aware our office has the data he requested. Per pt the info was emailed to the pt. 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 Please advise. Thank you. documented in this encounter Plan of Treatment Upcoming Encounters Date Type Department Care Team (Late st Contact Info) Description 12/15/2023 11:00 AM EDT Office Visit Pharmacy, [facility] [address] [facility] [place] [address] Pharmacist2, [facility] [address] [facility] [place] [address] 03/29/2024 10:40 AM EST Office Visit Family Practice [facility] [address] [facility] [place] [place] [address] Maya Cutler MD [address] [facility] [place] [place] [address] 07/07/2024 10:00 AM EST Office Visit Urology [facility] Jacobo [address] [place] [address] Valeriano Rizvi Jr., MD [address] [place] [address] 07/07/2024 11:20 AM EST Office Visit Sleep Disorders Ctr [facility] [address] [phone] Sherrie Jones DO [address] [place] [address] Health Maintenance Due Date Last Done Comments Depression Screening 1973 HIV Screening 01/29/1976 Hepatitis C Screening 1979 Cologuard 2006 Fecal Occult Blood Test 2006 Sigmoidoscopy 2006 Zoster Vaccines (2 of 2) 12/11/2023 10/16/2023 Albumin/Creatinine Ratio 03/27/2024 03/27/2023 HbA1c 03/27/2024 09/25/2023, [...] filedocumented as of this encounter Care Teams Mobile Home Servicer Relationship Specialty Start Date End Date Maya Cutler MD [address] [place] [address] PCP - General Family Medicine 03/27/23 documented as of this encounter
--- OUTSIDE RECORDS SUMMARY | 2024-03-15 15:53 | External Medical Summary | Summary of Care ---
Author Name Unknown Organization [facility] Address [address] [place] [address] Phone [phone] Care Team Providers Care Cement Despatch Operator Name Role Phone Maya Cutler MD Primary Care Provider [phone] Reason for Visit * Reason Onset Date Comments Diabetes 10/09/2023 Encounter Details Date Type Department Care Team ([facility] st Contact Info) Description 10/09/2023 2:00 PM EDT Scheduled Telephone James Steinberg [address] [place] [address] Fanta Renee RDN [address] [place] [address] Allergies Active Allergy Reactions Criticality Noted Date Comments Codeine 03/27/2023 Gets anxiety Latex 03/14/2023 documented as of this encounter (statuses as of 10/09/2023) Medications Medication Sig Dispensed Refills Start Date [...] ontrolled type 2 diabetes mellitus with hyperglycemia ([facility]) Use with glucometer to check blood sugar [...] hemoglobin A1c goal of less than 7.0% ([facility]) Inject 1 mg under the skin once a week. 3 mL 5 06/02/2023 Active Betamethasone Dipropionate Aug 0.05 % External Cream (Diprolene AF)Indications:Chron ic pruritic rash in adult Apply topically to affected area 2 times a day. To affected area. 50 g 3 06/13/2023 Active glyBURIDE 5 MG Oral Tablet (Diabeta)Indications :Uncontrolled type 2 diabetes mellitus with hyperglycemia ([facility]) Take 1 Tablet by mouth daily with breakfast. 30 Tablet 11 09/08/2023 Active Tamsulosin HCl 0.4 MG Oral Capsule (Flomax)Indications: BPH with obstruction/lower urinary tract symptoms TAKE 1 CAPSULE BY MOUTH EVERYDAY AT BEDTIME 30 Capsule 5 09/25/2023 Active documented as of this encounter (statuses as of 10/09/2023) Active Problems Problem Noted Date Diagnosed Date Class 1 obesity due to exces s calories with serious comorbidity and body mass index (BMI) of 33.0 to 33.9 in adult 09/25/2023 BPH with obstruction/lower urinary tract symptom s 09/25/2023 SHANNON (obstructive sleep apnea) 03/27/2023 Food insecurity 03/24/2023 Overview: Per [facility] Protocol Type 2 diabetes mellitus wit h hemoglobin A1c goal of less than 7.0% 03/14/2023 HTN, goal below 130/80 03/14/2023 documented as of this encounter (statuses as of 10/09/2023) Immunizations Name Administration Dates Next Due COVID-19 mRNA, LNP-s, No Pre serve, 2-Dose Series (Pfizer) 06/01/2021,06/28/2020,05/23/2020 Pneumococcal Conjugate Vacci ne, 20-valent ([id number]) 09/25/2023 Seasonal Influenza Virus Vac cine, Unspecified [...] encounter Miscellaneous Notes * Telephone Encounter - Fanta Renee RDN - 10/09/2023 3:54 PM EDT Attempted to contact pt regarding rescheduling canceled new diabetes video appointment from September 01. Left message on pt's voicemail regarding rescheduling appointment. Fanta Renee RDN, Clinical Dietitian II, [facility] Clinical Nutrition Services [facility] [address] [place] [address] Available via [employer] documented in this encounter Plan of Treatment Upcoming Encounters Date Type Department Care Team (Late st Contact Info) Description 12/15/2023 11:00 AM EDT Office Visit Pharmacy, [facility] [address] [facility] [place] [address] Pharmacist2, [facility] [address] [facility] [place] [address] 03/29/2024 10:40 AM EST Office Visit Family Practice [facility] [address] [facility] [place] [address] Maya Cutler MD [address] [facility] [place] [address] 07/07/2024 10:00 AM EST Office Visit Urology Zein[place] Jacobo [address] [place] [address] Valeriano Rizvi Jr., MD [address] [place] [address] 07/07/2024 11:20 AM EST Office Visit Sleep Disorders Ctr [facility] [address] [phone] Sherrie Jones DO [address] [place] [address] Health Maintenance Due Date Last Done Comments Depression Screening 1973 HIV Screening 01/29/1976 Hepatitis C Screening 1979 Cologuard 2006 Fecal Occult Blood Test 2006 Sigmoidoscopy 2006 Zoster Vaccines (1 of 2) 2011 Albumin/Creatinine Ratio 03/27/2024 03/27/2023 HbA1c 03/27/2024 09/25/2023, 01/2 10/2023, 03/27/2023, Additional history exists Diabetic Eye Exam 06/03/2024 06/03/2023 GFR 06/06/2024 06/06/2023, 1107/2022, 12/19/2022 Diabetic Foot Exam 09/24/2024 09/25/2023 Lipid [...] filedocumented as of this encounter Care Teams Cement Despatch Operator Relationship Specialty Start Date End Date Maya Cutler MD [address] [place] [address] PCP - General Family Medicine 03/27/23 documented as of this encounter
--- OUTSIDE RECORDS SUMMARY | 2024-03-15 15:53 | External Medical Summary ---
Author Name Unknown Address Unknown Organization K09:[facility] [address] [place] [address] Laboratory Report Ordering Provider Test Date Status FLORENCE EATON 09/25/2023 10:25:38 Final Observation Date Value Abnormality Reference (Units ) Status HbA1C 09/25/2023 10:25:38 6.0 Above high normal 4. 0-5.6 (%) Final Performing Location [facility] [address] [place] [address]
--- OUTSIDE RECORDS SUMMARY | 2024-03-15 15:53 | External Medical Summary | Summary of Care ---
Author Name Unknown Organization [facility] Address [address] [place] [address] Phone [phone] Care Team Providers Care Qa Specialist Name Role Phone Maya Cutler MD Primary Care Provider [phone] Reason for Visit * Reason Onset Date Comments Order Request 11/20/2023 Encounter Details Date Type Department Care Team ([facility] st Contact Info) Description 11/20/2023 Telephone Family Practice [facility] [address] [place] [address] Maya Cutler MD [address] [place] [address] Order Request Allergies Active Allergy Reactions Criticality Noted Date Comments Codeine 03/27/2023 Gets anxiety Latex 03/14/2023 documented as of this encounter (statuses as of 11/20/2023) Medications Medication Sig Dispensed Refills Start Date [...] as of this encounter (statuses as of 11/20/2023) Active Problems Problem Noted Date Diagnosed Date Class 1 obesity due to exces s calories with serious comorbidity and body mass index (BMI) of 33.0 to 33.9 in adult 09/25/2023 BPH with obstruction/lower urinary tract symptom s 09/25/2023 SHANNON (obstructive sleep apnea) 03/27/2023 Food insecurity 03/24/2023 Overview: Per [facility] Protocol Type 2 diabetes mellitus wit h hemoglobin A1c goal of less than 7.0% 03/14/2023 HTN, goal below 130/80 03/14/2023 documented as of this encounter (statuses as of 11/20/2023) Immunizations Name Administration Dates Next Due COVID-19 mRNA, LNP-s, No Pre serve, 2-Dose Series (Pfizer) 06/01/2021,06/28/2020,05/23/2020 Pneumococcal Conjugate Vacci ne, 20-valent ([id number]) 09/25/2023 Seasonal Influenza Virus Vac cine, Unspecified [...] money to get more. Often true 03/13/2023 Childcare Answer Date Recorded Do you feel overwhelmed with taking care of a child, family member or friend? No 03/13/2023 Does your family need help f inding childcare? (Household - for ages 0-17 years) Not on file 03/13/2023 Clothing Answer Date Recorded Have you been unable to get clothing when it was really needed? No 03/13/2023 Is your family able to get c lothes or diapers when needed? (Household - for ages 0-17 years) Not on file 03/13/2023 Personal Safety Answer Date Recorded Do you feel unsafe or have concerns for your saf ety? No 03/13/2023 Do you have concerns for you r family's safety? (Household - for ages 0-17 years) Not on file 03/13/2023 Utilities Answer Date Recorded Do you have trouble paying y our heating, water, or electric bill? No 03/13/2023 Is your family able to pay t he heat, water, or electric bill? (Household - for ages 0-17 years) Not on file 03/13/2023 Does your family have access to good internet? (Household - for ages 0-17 years) Not on file 03/13/2023 Employment Status Answer Date Recorded Are you unemployed or without regular income? No 03/13/2023 Does the household have a re gular source of income? (Household - for ages 0-17 years) Not on file 03/13/2023 Social Connections Answer Date Recorded How often do you feel lonely or isolated from those around you? Sometimes 03/13/2023 Financial Resource Strain Answer Date R ecorded Do you have any trouble payi ng for your medications, or do you think you might in the future? No 03/13/2023 Does your family have troubl e paying for medicine? (Household - for ages 0-17 years) Not on file 03/13/2023 Transportation Needs Answer Date Record ed READ ONLY Do you have troubl e getting a ride to medical visits or work? Never True 03/13/2023 Does your family have a hard time getting a ride to doctors visits? (Household - for ages 0-17 years) Not on file 03/13/2023 Has lack of transportation k ept you from medical appointments, meetings, work, or from getting things needed for daily living? Check all that apply. (Adult - for ages 18 years and over) Not on file 03/13/2023 Do you (or your family) have trouble finding or paying for a ride (transportation)? (Household - for ages 0-17 years) Not on file 03/13/2023 Housing Stability Answer Date Recorded Do you currently live in a s helter or have no steady place to sleep at night? No 03/13/2023 READ ONLY Do you think you a re at risk of becoming homeless? No 03/13/2023 Does your family worry about paying for your home or becoming homeless? (Household - for ages 0-17 years) Not on file 1 05/13/2022 Are you homeless or worried that you might be in the future? (Adult - for ages 18 years and over) Not on file Are you (or your family) karolyn eless or worried that you might be in the future? (Household - for ages 0-17 years) Not on file Food Insecurity Answer Date Recorded Do you need food for this week? No 03/13/2023 Are you able to get enough f ood for your family? (Household - for ages 0-17 years) Not on file 03/13/2023 Does your family need food t his week? (Household - for ages 0-17 years) Not on file 03/13/2023 Do you always have enough fo od for your family? (Household - for ages 0-17 years) Not on file 03/13/2023 Sex and Gender Information Value Date Recorded Sex Assigned at Male 03/13/2023 9:59 AM EDT Gender Identity Male 03/13/2023 9:59 AM EDT Sexual Orientation Straight 03/13/2023 9 :59 AM EDT Job Start Date Occupation Industry Not on file Not on file Not on file documented as of this encounter Miscellaneous Notes * Telephone Encounter - Gabriella Krishna OSA - 11/20/2023 2:28 PM EDT I can call the patient to see if it was supposed to be an EKG or Echo? * Telephone Encounter - Maya Cutler MD - 11/20/2023 1:09 PM EDT Did they mean echo, or EKG? I've ordered an EKG which he can have done at a nursing visit but if they're evaluating a new murmur they may have recommended TTE * Telephone Encounter - Claudia Rivero OSA - 11/20/2023 12:30 PM EDT Patient is calling, he is scheduled for an appt with Dr Cutler 8-2. 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 They want him to have an EKG done PAYAL. When the doctor was doing the exam, he heard a heart murmur. He is calling to see if his pcp could order that for him. He denies any chest pain, heaviness or shortness of breath. Please call him back to advise. documented in this encounter Plan of Treatment Upcoming Encounters Date Type Department Care Team (Late st Contact Info) Description 11/24/2023 3:15 PM EDT Cardiac Studies Cardiac Studies, [facility] [address] [facility] [place] [address] 12/12/2023 12:40 PM EDT Office Visit [facility] [address] [facility] [place] [address] Maya Cutler MD [address] [facility] [place] [address] 12/15/2023 11:00 AM EDT Office Visit Pharmacy, [facility] [address] [facility] [place] [address] Pharmacist2, [facility] [address] [facility] [place] [address] 03/29/2024 10:40 AM EST Office Visit [facility] [address] [facility] [place] [address] Maya Cutler MD [address] [facility] [place] [address] 07/07/2024 10:00 AM EST Office Visit Urology [place] Jacobo [address] [place] [address] Valeriano Rizvi Jr., MD [address] [place] [address] 07/07/2024 11:20 AM EST Office Visit [facility] Disorders Ctr [facility] [address] [place] [phone] Sherrie Jones, [address] [place] [address] Scheduled Orders Name Type Priority Associated Diagnoses Orde r Schedule EKG EKG Routine Heart murmur Expected: 11/20/2023 (Approximate), Expi res: 12/20/2024 Health Maintenance Due Date Last Done Comments [...] as of this encounter Visit Diagnoses Diagnosis Heart murmur- Primary Undiagnosed cardiac murmurs documented in this encounter Care Teams Qa Specialist Relationship Specialty Start Date End Date Maya Cutler MD [address] [place] [address] PCP - General Family Medicine 03/27/23 documented as of this encounter
--- OUTSIDE RECORDS SUMMARY | 2024-03-15 15:53 | External Medical Summary | Summary of Care ---
Author Name Unknown Organization [facility] Address [address] [place] [address] Phone [phone] Care Team Providers Care Field Sales Associate Name Role Phone Maya Cutler MD Primary Care Provider [phone] Reason for Visit * Reason Comments Dosage Adjustment In Person (Anticoag Cl inic) Diabetes Management * Evaluate & Treat - Unlimited Visits (Within 10 days (routine)) - Closed Specialty Diagnoses / Procedures Referred By Contac t Referred To Contact Pharmacist / Pharmacy Diagnoses Uncontrolled type 2 diabetes mellitus with hyperglycemia (HCC) Maya Cutler MD [address] [place] [address] Referral ID Status Reason Start Date Expiration Date V isits Requested Visits Authorized [id number] Closed Specialty Services Required 03/28/2023 99 99 Encounter Details Date Type Department Care Team ([facility] Contact Info) Description 12/15/2023 11:00 AM EDT Office Visit Pharmacy, [facility] [address] [facility] [place] [address] Pharmacist2, [facility] 200 [place] [address] Type 2 diabetes mellitus with hemoglobin A1c goal of less than 7.0% ([facility]ER[facility])* Allergies Active Allergy Reactions Criticality Noted Date Comments Codeine 03/27/2023 Gets anxiety Latex 03/14/2023 documented as of this encounter (statuses as of 12/15/2023) Medications Medication Sig Dispensed Refills Start Date [...] a week. 3 mL 5 06/02/2023 Active Additional Information Patient not taking.Reported on 12/12/2023 glyBURIDE 5 MG Oral Tablet (Diabeta)Indications :Uncontrolled [...] Capsule before bedtime. 60 Capsule 11 12/12/2023 Active documented as of this encounter (statuses as of 12/15/2023) Active Problems Problem Noted Date Diagnosed Date Diabetic peripheral neuropathy 12/12/2023 Class 2 severe obesity due t o excess calories with serious comorbidity and body mass index (BMI) of 35.0 to 35.9 in adult 09/25/2023 BPH with obstruction/lower urinary tract symptom s 09/25/2023 SHANNON (obstructive sleep apnea) 03/27/2023 Food insecurity 03/24/2023 Overview: Per [facility] Protocol Type 2 diabetes mellitus wit h hemoglobin A1c goal of less than 7.0% 03/14/2023 HTN, goal below 130/80 03/14/2023 documented as of this encounter (statuses as of 12/15/2023) Immunizations Name Administration Dates Next Due COVID-19 mRNA, LNP-s, No Pre serve, 2-Dose Series (Pfizer) 06/01/2021,06/28/2020,05/23/2020 Pneumococcal Conjugate Vacci ne, 20-valent ([id number]) 09/25/2023 Seasonal Influenza Virus Vac cine, Unspecified [...] 12/01/2023 Does the household have a re lar source of income? (Household - for ages [...] on file documented as of this encounter Progress Notes * Elías Begum RP - 12/15/2023 11:06 AM EDT Agree with plan as documented. Elías Begum [facility] Clinical Pharmacist 12/15/2023, 11:06 AM * Christina Gay, Pharmacy [facility] - 12/15/2023 11:00 AM EDT Medication Therapy Disease Management [facility] - Diabetes Management Progress Note Ron Rose, identified by name and date of , is a 63 year old male being seen for diabetes management/education. Patient presents for return diabetic visit. DIABETES: Current diabetic medications: Ozempic 1mg once weekly Glyburide 5mg QAM Metformin ER 500mg 2 tabs BID Medication Injection Site: Abdomen Lifestyle: Diet: unchanged Glucose Review/SMBG: Readings per patient memory/recall: Patient is currently testing once times a day. CDL physical A1c was 6.0% at outside lab. Hypoglycemia: Does your blood sugar go below 70 mg/dL? No Hyperglycemia symptoms present: none Recent Labs Units 09/25/23 1025 06/06/23 0923 03/27/23 1100 HEMOGLOBIN A1C - [facility] % -- 7.9* 11.4* HEMOGLOBIN A1C POCT - [facility] % 6.0* -- -- Recent Labs Units 06/06/23 0923 03/14/23 1329 12/19/22 0000 ESTIMATED GLOMERULAR FILTRATION RATE - [facility] mL/min 86 >90 -- EGFR-OUTSIDE LAB -- -- 92 CREATININE - [facility] mg/dL 1.0 0.8 -- CREATININE-OUTSIDE LAB MG/DL -- -- 0.94 HYPERTENSION: Patient on ACEi/ARB: yes BP Readings from Last 3 Encounters: 12/12/23 124/68 09/25/23 126/66 07/07/23 118/74 Blood pressure at goal: yes HYPERLIPIDEMIA: Patient is taking moderate or high intensity statin: yes HEALTH MAINTENANCE REVIEW: Health Maintenance Due Topic Date Due Depression Screening Never done HIV Screening Never done Hepatitis C Screening Never done Zoster Vaccines (2 of 2) 12/11/2023 ASSESSMENT & PLAN: ICD-10-CM 1. Type 2 diabetes mellitus with hemoglobin A1c goal of less than 7.0% (HCC) E11.9 BG Readings - Blood sugars controlled. CDL physical A1c was 6.0% at outside lab Medications - Reviewed current regimen, patient is not adherent to regimen. Not taking Ozempic, dueto affordability - will look into PAP Diet, Exercise, Lifestyle - No significant lifestyle changes since last visit. Patient is agreeable to SMBG 1 time(s) daily. Patient aware to contact clinic if any hypoglycemia before next visit. MEDICATION CHANGES: yes, see below; preferred pharmacy: [facility] for Ozempic Diabetic Medications: RESTART: Ozempic 1mg once weekly - will look into PAP Glyburide 5mg QAM Metformin ER 500mg 2 tabs BID HEALTH MAINTENANCE INTERVENTIONS: Labs: Up to Date Immunizations: Eligible for 2nd Zoster vaccine Foot Exam: Up to Date Eye Exam: Up to Date Annual Wellness Visit: Up to Date FOLLOW UP: Return to clinic in 4 Months 04/26/2024 Christina Gay, Pharmacy [facility] Clinical Pharmacist - Senior Construction Project Manager Medication Therapy Management Clinic 12/15/2023, 8:46 AM documented in this encounter Plan of Treatment Upcoming Encounters Date Type Department Care Team (Late st Contact Info) Description 03/29/2024 10:40 AM EST Office Visit Family Practice [facility] [address] [facility] [place] [address] Maya Cutler MD [address] [facility] [place] [address] 04/26/2024 11:00 AM EST Office Visit Pharmacy, [facility] [address] [facility] [place] [address] Pharmacist2, [facility] [address] [facility] [place] [address] 07/07/2024 10:00 AM EST Office Visit Urology [place] Jacobo [address] [place] [address] Valeriano Rizvi Jr., MD [address] [place] [address] 07/07/2024 11:20 AM EST Office Visit Sleep Disorders Ctr [facility] [address] [place] [phone] Sherrie Jones, [address] [place] [phone] Scheduled Orders Name Type Priority Associated Diagnoses Orde r Schedule HEMOGLOBIN A1C Lab Routine Type 2 diabetes mellitus with hemoglobin A1c goal of less than 7.0% (HCC) Expected: 03/16/2024 (Approximate), Expires: 12/14/2024 BASIC METABOLIC PANEL Lab Routine Type 2 diabetes mellitus with hemoglobin A1c goal of less than 7.0% (HCC) Expected: 03/16/2024 (Approximate), Expires: 12/14/2024 Health Maintenance Due Date Last Done Comments [...] goal of less than 7.0% (HCC)- Primary documented in this encounter Care Teams Field Sales Associate Relationship Specialty Start Date End Date Maya Cutler MD [address] [place] [address] PCP - General Family Medicine 03/27/23 documented as of this encounter
--- OUTSIDE RECORDS SUMMARY | 2024-03-15 15:53 | External Medical Summary | Summary of Care ---
Author Name Unknown Organization [facility] Address [address] [place] [address] Phone [phone] Care Team Providers Care Pop Singer Name Role Phone Maya Cutler MD Primary Care Provider [phone] Reason for Visit * Reason Onset Date Comments Advice 10/17/2023 CPAP readings fo r DOT Encounter Details Date Type Department Care Team ([facility] st Contact Info) Description 10/17/2023 Telephone Access Center, [facility] [address] [facility] *DO NOT REMOVE THIS DEPARTMENT* [place], [place] [id number] Services, Scheduling [address] [place] [address] Advice (CPAP readings for DOT) Allergies Active Allergy Reactions Criticality Noted Date Comments Codeine 03/27/2023 Gets anxiety Latex 03/14/2023 documented as of this encounter (statuses as of 10/17/2023) Medications Medication Sig Dispensed Refills Start Date [...] as of this encounter (statuses as of 10/17/2023) Active Problems Problem Noted Date Diagnosed Date [...] as of this encounter (statuses as of 10/17/2023) Immunizations Name Administration Dates Next Due COVID-19 mRNA, LNP-s, No Pre serve, 2-Dose Series (Pfizer) 06/01/2021,06/28/2020,05/23/2020 Pneumococcal Conjugate Vacci ne, 20-valent ([id number]) 09/25/2023 Seasonal Influenza Virus Vac cine, Unspecified [...] encounter Miscellaneous Notes * Telephone Encounter - Elvi Samuel OSA - 10/17/2023 4:13 PM EDT Patient calling in and needing the last 3 months of CPAP reading for his DOT. Please advise. Thank you. documented in this encounter Plan of Treatment Upcoming Encounters Date Type Department Care Team (Late st Contact Info) Description 12/15/2023 11:00 AM EDT Office Visit Pharmacy, [facility] [place] [address] [place] [address] Pharmacist2, [facility] [address] [facility] [place] [address] 03/29/2024 10:40 AM EST Office Visit Family Practice [facility] [place] [address] [facility] [place] [address] Maya Cutler MD 200 [facility] [place] [address] 07/07/2024 10:00 AM EST Office Visit Urology [place] Jacobo [address] [place] [address] Valeriano Rizvi Jr., MD [address] [place] [address] 07/07/2024 11:20 AM EST Office Visit Sleep Disorders Ctr [facility] [place] [address] [place] [phone] Sherrie Jones, [address] [place] [address] Health Maintenance Due Date Last Done Comments [...] filedocumented as of this encounter Care Teams Pop Singer Relationship Specialty Start Date End Date Maya Cutler MD [address] [place] [address] PCP - General Family Medicine 03/27/23 documented as of this encounter
--- OUTSIDE RECORDS SUMMARY | 2024-03-15 15:53 | External Medical Summary | Summary of Care ---
Author Name Unknown Organization [facility] Address [address] [place] [address] Phone [phone] Care Team Providers Care Developer Evangelist Name Role Phone Maya Cutler MD Primary Care Provider [phone] Reason for Visit * Reason Onset Date Comments Order Request 11/20/2023 Encounter Details Date Type Department Care Team ([facility] st Contact Info) Description 11/20/2023 Telephone Family Practice [facility] [address] [place] [address] Maya Cutler MD [address] [place] [address] Order Request Allergies Active Allergy Reactions Criticality Noted Date Comments Codeine 03/27/2023 Gets anxiety Latex 03/14/2023 documented as of this encounter (statuses as of 11/21/2023) Medications Medication Sig Dispensed Refills Start Date [...] as of this encounter (statuses as of 11/21/2023) Active Problems Problem Noted Date Diagnosed Date Class 1 obesity due to exces s calories with serious comorbidity and body mass index (BMI) of 33.0 to 33.9 in adult 09/25/2023 BPH with obstruction/lower urinary tract symptom s 09/25/2023 SHANNON (obstructive sleep apnea) 03/27/2023 Food insecurity 03/24/2023 Overview: Per [facility] Protocol Type 2 diabetes mellitus wit h hemoglobin A1c goal of less than 7.0% 03/14/2023 HTN, goal below 130/80 03/14/2023 documented as of this encounter (statuses as of 11/21/2023) Immunizations Name Administration Dates Next Due COVID-19 mRNA, LNP-s, No Pre serve, 2-Dose Series (Pfizer) 06/01/2021,06/28/2020,05/23/2020 Pneumococcal Conjugate Vacci ne, 20-valent ([id number]) 09/25/2023 Seasonal Influenza Virus Vac cine, Unspecified [...] encounter Miscellaneous Notes * Telephone Encounter - Emerald Wagner MED ASSIST - 11/21/2023 8:56 AM EDT Spoke to patient and he was unsure. Patient would still like to come in for an EKG. I informed him that it would be a nurse visit. * Telephone Encounter - Gabriella Krishna OSA [...] 3:15 PM EDT Cardiac Studies Cardiac Studies, [facility] [address] [place] [address] 12/12/2023 12:40 PM EDT Office Visit [facility] [address] [place] [address] [address] Maya Cutler MD [address] [place] [address] [address] 12/15/2023 11:00 AM EDT Office Visit Pharmacy, [facility] [address] [place] [address] [address] Pharmacist2, [facility] [address] [place] [address] [address] 03/29/2024 10:40 AM EST Office Visit [facility] [address] [place] [address] [address] Maya Cutler MD [address] [place] [address] [address] 07/07/2024 10:00 AM EST Office Visit Urology [place] Jacobo [address] [place] [address] Valeriano Rizvi Jr., MD [address] [place] [address] 07/07/2024 11:20 AM EST Office Visit Sleep Disorders Ctr [facility] [address] [place] [phone] Sherrie Jones, [address] [place] [address] Scheduled Orders Name Type Priority Associated Diagnoses [...] Eye Exam 06/03/2024 06/03/2023 GFR 06/06/2024 06/06/2023, 110 07/2022, 12/19/2022 Diabetic Foot Exam 09/24/2024 09/25/2023 [...] murmurs documented in this encounter Care Teams Developer Evangelist Relationship Specialty Start Date End Date Maya Cutler MD 200 [facility] [place] [address] PCP - General Family Medicine 03/27/23 documented as of this encounter
--- OUTSIDE RECORDS SUMMARY | 2024-03-15 15:53 | External Medical Summary | Summary of Care ---
Author Name Unknown Organization [facility] Address [address] [place] [address] Phone [phone] Care Team Providers Care Shop And Alteration Tailor Name Role Phone Maya Cutler MD Primary Care Provider [phone] Reason for Visit * Reason Onset Date Comments Order Request 11/20/2023 Encounter Details Date Type Department Care Team ([facility] st Contact Info) Description 11/20/2023 Telephone Family Practice [facility] [address] [place] [address] Maya Cutler MD [address] [place] [address] Order Request Allergies Active Allergy Reactions Criticality [...] apnea) 03/27/2023 Food insecurity 03/24/2023 Overview: Per [facility] Protocol Type 2 diabetes mellitus wit h hemoglobin A1c goal of less than 7.0% 03/14/2023 HTN, goal below 130/80 03/14/2023 documented as of this encounter (statuses as of 11/20/2023) Immunizations Name Administration Dates Next Due COVID-19 mRNA, LNP-s, No Pre serve, 2-Dose Series (Pfizer) 06/01/2021,06/28/2020,05/23/2020 Pneumococcal Conjugate Vacci ne, 20-valent ([id number]) 09/25/2023 Seasonal Influenza Virus Vac cine, Unspecified [...] encounter Miscellaneous Notes * Telephone Encounter - Maya Cutler MD [...] Description 12/12/2023 12:40 PM EDT Office Visit [facility] 200 [facility] [place], [place] [address] Maya Cutler MD [address] [facility] [place], [place] [address] 12/15/2023 11:00 AM EDT Office Visit Pharmacy, [facility] [address] [facility] [place] [address] Pharmacist2, [facility] [address] [facility] [place], [place] [address] 03/29/2024 10:40 AM EST Office Visit [facility] [address] [facility] [place] [address] Maay Cutler MD [address] [facility] [address] [place], [place] [address] 07/07/2024 10:00 AM EST Office Visit Urology [place] Jacobo [address] [place] [address] Valeriano Rizvi Jr., MD [address] [place] [address] 07/07/2024 11:20 AM EST Office Visit Sleep Disorders Ctr [facility] [address] [place] [phone] Sherrie Jones DO [address] [place] [address] Scheduled Orders Name Type Priority Associated Diagnoses [...] murmurs documented in this encounter Care Teams Shop And Alteration Tailor Relationship Specialty Start Date End Date Maya Cutler MD [address] [facility] [place] [address] PCP - General Family Medicine 03/27/23 documented as of this encounter
--- NOTE | 2024-03-15 15:59 | Emergency Department Note ---
ED Visit Note I was consulted in regards to the patient's presentation and plan of care by the Advanced Practice Provider. I engaged in a detailed/meaningful discussion with the Advanced Practice Provider in regards to this patient's workup and plan of care. I performed a substantiative portion of the medical decision making following discussion with the Advanced Practice Provider. Please see the Advanced Practice Provider's separate documentation for full details of the patient's visit. I agree with the assessment and plan of Malick Matt PA-C. Javier Polanco, Emergency Medicine .
[2024-03-15] MEDS: ACETAMINOPHEN 1,000 MG/100 ML VIAL IV SCH (16:28)
[2024-03-15] MEDS ORDERED: ONDANSETRON INJ 2 MG/ML 2 ML VIAL IV PRN (16:31)
[2024-03-15] MEDS ORDERED: GLUCOSE 10 TAB/TUBE PO PRN (16:31)
[2024-03-15] MEDS ORDERED: POLYETHYLENE (MIRALAX) 17 GM PACK PO PRN (16:31)
[2024-03-15] MEDS ORDERED: MAGNESIUM HYDROXIDE SUSP 30 ML UDC PO PRN (16:31)
[2024-03-15] MEDS ORDERED: GLUCOSE 40% GEL 15 GM TUBE PO PRN (16:31)
[2024-03-15] MEDS ORDERED: DEXTROSE 50% 50 ML SYRINGE IV PRN (16:31)
[2024-03-15] MEDS ORDERED: CARBOHYDRATES FOR HYPOGLYCEMIA PO PRN (16:31)
[2024-03-15] MEDS ORDERED: GLUCAGON FOR INJ 1 MG VIAL SQ PRN (16:31)
[2024-03-15 16:59] VITALS: TEMP 97.5
--- NOTE | 2024-03-15 17:24 | Orthopedic Consultation ---
Date of Consultation March 15, 2024 Assessment & Plan (1) Puncture wound of hand: Patient was seen and evaluated today by myself as well as Dr. Rowland. He does have a small puncture wound to the left palmar surface of his hand. There is some surrounding erythema suggestive of cellulitis. There is no significant edema. A bulky hand dressing was applied to the area along with some Adaptic over the open wound. Encouraged ice and elevation. He can do full finger range of motion as tolerated. Continue the IV Zosyn and daptomycin as per the primary service. He may have a regular diabetic diet. No plans or need for surgical intervention at this time. Will reassess his left hand tomorrow afternoon. Patient was informed of condition. All questions were answered. He understands and agrees with the plan. History of Present Illness Reason for Consultation: Left hand pain and swelling, status post puncture wound Attending Physician: Sagar Kerns MD History of Present Illness Ron Rose is a 64y/o M with PMHx significant for DM type II, diabetic peripheral neuropathy, SHANNON on CPAP, HTN, BPH, hyperlipidemia, vitamin D deficiency and essential tremor who presented to the ED for evaluation of left hand and wrist pain. Patient was playing outside with his family and tripped over their dog this past Friday which resulted in him landing on his left hand outstretched directly onto a small tree stump - he unfortunately suffered a puncture wound to his left palmar region as there was a piece of sharp wood that was sticking out of the tree stump. He was evaluated at [facility] emergency department after the injury occurred and x-ray imaging at that time was negative for any acute fractures. He was discharged home with instructions for wound care and he was also placed in a splint at that time. However he has been dealing with a significant amount of pain since then and has noticed some erythema and warmth around the site of the puncture wound that seems to be tracking up his left forearm region. No recent systemic signs of illness. Orthopedic consultation obtained. He states that since he has been here the pain is much improved. His seems to think that it is also less swollen. He has a bulky dressing on the left hand which was removed. He denies any numbness or tingling in his left upper extremity. States that earlier today he was having pain that radiated up into his forearm but that also seems to be improved. Vital signs have remained normal. His white blood cell count was normal. Denies any previous injury. He is right-hand dominant. Cellulitis of Left Arm: Vital stable, no evidence of sepsis on admission. Notable erythema/warmth of L palmar region, erythematous tracking visualized up the L forearm as well. L hand/wrist XR with no evidence of fracture/dislocation. S/p IV Zosyn in the ED. MRSA swab pending. Continue ABX coverage w/ IV Zosyn + Daptomycin for now. PRN pain control. Blood cultures pending. Ortho made aware of the patient in the ED - formal consult pending. NPO until evaluated by ortho. DM Type II: Hold home agents, SSI regimen while inpatient. BSG checks ACHS. Most recent Hgb A1c was 8.3% on 02/24/2024. Other Chronic Medical Conditions: Diabetic peripheral neuropathy, HTN, BPH --> Can continue home medications for these specific conditions. CPAP HS for SHANNON. Hold statin while on daptomycin. DVT Prophylaxis: SCDs/TEDs for now pending orthopedic evaluation. Allergies Allergy/AdvReac Type Severity Reaction Status Date / Time codeine Allergy Hives Verified 03/15/24 11:15 Home Medications Medication Instructions Recorded Confirmed Type rosuvastatin 40 mg tablet 40 mg PO DAILY 05/22/23 03/15/24 History fluticasone propionate 50 2 spray intranasal DAILY PRN 05/26/23 03/15/24 History mcg/actuation nasal allergies spray,suspension tamsulosin 0.4 mg capsule 0.4 mg PO HS 05/26/23 03/15/24 History glyburide 5 mg tablet 5 mg PO DAILY 03/15/24 03/15/24 History lisinopril 20 mg tablet 20 mg PO DAILY 03/15/24 03/15/24 History metformin 500 mg tablet,extended 1,000 mg PO BID 03/15/24 03/15/24 History release 24 hr pregabalin 150 mg capsule 150 mg PO BID 03/15/24 03/15/24 History Patient History Medical History (Updated 03/15/24 @ 17:29 by Loli Shafer PA-C) Depression Erectile dysfunction Dyslipidemia Hypertension Obesity (BMI 30-39.9) Type 2 diabetes mellitus Surgical History H/O total knee replacement Social History Smoking Status: Never smoker Hx Alcohol Use: Yes Alcohol type: beer Hx Substance Use: No Preferred Language: Samoan Communication Ability: Effective Adjunct Business Instructor Required: No Beliefs That Will Affect Care: None Current Living Situation: Alone and Spouse Current Living Situation Comment: 2 story home , 1 step to enter home Other Information That Helps Us Care for You: No Feels Safe at Home: Yes Safety Concerns: Feels Safe At This Time Assistive Devices: CPAP and Glasses Review of Systems Review of Systems: as per HPI; otherwise noncontributory Physical Exam Musculoskeletal: Exam focused on his left upper extremity: He does have a puncture wound on the palmar aspect of his left hand. There is a scab or dried blood over the open area which was removed after cleansed with an alcohol swab. There is no visible foreign body. It was palpated with a Q-tip and no active drainage came from the open area. There is some mild surrounding erythema. The thenar eminence is mildly edematous but skin wrinkles are present. There is no evidence of underlying fluctuance or abscess formation. There is no active drainage from the puncture wound. There is also some mild tenderness over the hypothenar eminence. He is unable to make a complete fist.He is able to extend his DIP and PIP joints and hold against resistance. Passively I am able to flex his MCP joints past 90 and is able to hold against resistance. This does reproduce some pain in the palmar aspect of his hand when resisting flexion of the index middle and ring finger. Distal sensation is normal. Capillary fill is brisk. Distal pulses are 1+. Has full thumb range of motion with flexion and extension. Mild discomfort with abduction and adduction of the left thumb. Mild erythema of the thenar eminence. Does not tolerate any pressure in the carpal canal or Tinel test. Wrist is nontender with palpation. No evidence of wrist joint effusion. Tolerates active and passive range of motion of the wrist and forearm. Nontender throughout the left forearm with no edema or erythema. No evidence of flexor tenosynovitis. He is able to abduct his fingers and hold against resistance. He can fully extend his fingers and hold against resistance. No tenderness on the dorsal aspect of the left hand or fingers. Results & Data Vital Signs (Past 12 Hours) Vital Signs Temp Pulse Pulse Resp BP BP Pulse Ox 03/15/24 16:32 36.4 C L 65 18 122/79 99 03/15/24 15:57 03/15/24 12:05 74 20 123/72 99 03/15/24 10:32 36.7 C 89 16 137/82 97 O2 Del Method 03/15/24 16:32 Room Air 03/15/24 15:57 Room Air 03/15/24 12:05 Room Air 03/15/24 10:32 Room Air Laboratory Results Lab Results 03/15/24 03/15/24 Range/Units 11:09 17:12 WBC 6.35 (4.8-10.8) K/ul RBC 3.99 L (4.70-6.10) M/uL Hgb 11.5 L (14.0-18.0) g/dl Hct 33.5 L (42.0-52.0) % MCV 84.0 (80.0-100.0) fL MCH 28.8 (25.0-34.0) pg MCHC 34.3 (32.0-36.0) g/dL RDW Std Deviation 44.6 (36.4-46.3) fL RDW Coeff of Wai 14.6 H (11.5-14.5) % Plt Count 198 (130-400) K/uL MPV 10.4 (9.4-12.4) fL Immature Gran % (Auto) 0.6 % Neut % (Auto) 68.2 % Lymph % (Auto) 20.9 % Sibley % (Auto) 6.6 % Eos % (Auto) 3.1 % Baso % (Auto) 0.6 % Neut # (Auto) 4.32 (1.40-6.50) K/uL Lymph # (Auto) 1.33 (1.20-3.40) K/uL Sibley # (Auto) 0.42 (0.11-0.59) K/uL Eos # (Auto) 0.20 (0.00-0.50) K/uL Baso # (Auto) 0.04 (0.00-0.20) K/uL Immature Gran # (Auto) 0.04 (0.01-0.20) K/uL Sodium 136 (136-145) mmol/L Potassium 4.2 (3.5-5.1) mmol/L Chloride 103 (98-107) mmol/L Carbon Dioxide 26 (21-32) mmol/L Anion Gap 7 (3-11) BUN 14 (6-23) mg/dl Creatinine 0.73 (0.6-1.4) mg/dl Est Cr Clr Drug Dosing 125.7 ml/min eGFR 102.23 BUN/Creatinine Ratio 19.2 (10-20) Glucose 190 H (70-99(Fasting)) mg/dl POC Glucose 215 H (70-99) mg/dl Calcium 9.7 (8.6-10.3) mg/dl Total Bilirubin 0.4 (0.2-1.0) mg/dl AST 20 (13-39) U/L ALT 29 (7-52) U/L Alkaline Phosphatase 70 (34-104) U/L Total Protein 7.4 (6.0-8.3) gm/dl Albumin 4.4 (3.4-5.0) gm/dl Globulin 3.0 (2.5-4.0) gm/dl Albumin/Globulin Ratio 1.5 (0.9-2) Diagnostic Findings Wrist X-Ray 03/15/24 10:36 XR wrist LT min 3V routine CLINICAL HISTORY: Left wrist pain following injury. COMPARISON: None FINDINGS: Alignment of the left wrist is anatomic. There is no acute fracture. No osseous lesions are identified. There are no erosions. Vascular calcifications incidentally noted. 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 IMPRESSION: No fracture or dislocation within the left wrist. ACT 112: Negative or not required by law. Electronically signed by: Nadir Benz M.D. 03/15/2024 11:20 AM Hand X-Ray 03/15/24 10:52 XR hand LT min 3V routine HISTORY: 64 years-old Male L hand pain s/p injury acute pain of the left hand and wrist status post trauma COMPARISON: Wrist radiographs of same day TECHNIQUE: 3 views of the left hand FINDINGS: Arterial calcifications. Multifocal osteoarthritis is predominantly mild however is moderate within the first carpometacarpal joint. No acute fracture, dislocation, osseous erosion or opaque foreign body. IMPRESSION: No acute fracture or dislocation identified within the hand. ACT 112: Negative or not required by law. The above report was generated using voice recognition software. It may contain grammatical, syntax or spelling errors. Electronically signed by: Carlos Manuel Nelson M.D. 03/15/2024 11:16 AM
[2024-03-15] MEDS: INSULIN ASPART PER UNIT CHARGE SC SCH (17:52)
[2024-03-15] MEDS: DAPTOmycin 350 MG in SYRINGE 0 ML IV SCH (17:56)
[2024-03-15] MEDS: PIPERACILLIN/TAZOBACTAM 4.5 GM/100 ML BAG IV SCH (17:59)
[2024-03-15] MEDS: ADVANCED PROBIOTIC 625 MG CAPSULE PO SCH (18:04)
[2024-03-15] MEDS: KETOROLAC 30 MG/ML VIAL IV PRN (19:36)
[2024-03-15] MEDS: PREGABALIN 150 MG CAP PO SCH (20:54)
[2024-03-15] MEDS: TAMSULOSIN HCL 0.4 MG CAP PO SCH (20:55)
--- OUTSIDE RECORDS SUMMARY | 2024-03-16 05:59 | External Medical Summary | Summary of Care ---
Author Name Unknown Organization [facility] Address [address] [place] [address] Phone [phone] Care Team Providers Care Heavy Equipment Plumbing Supervisor Name Role Phone Maya Cutler MD Primary Care Provider [phone] Encounter Details Date Type Department Care Team ([facility] Contact Info) Description 03/13/2024 Result Scan Unspecified Department <No scans attached> Allergies Active Allergy Reactions Criticality Noted Date Comments Codeine 03/27/2023 Gets anxiety Latex 03/14/2023 documented as of this encounter (statuses as of 03/15/2024) Medications Medication Sig Dispensed Refills Start Date End Date Status OneTouch Ultra 2 w/Device KitIndications:Uncon trolled type [...] THE EVENING 360 Tablet 3 03/11/2024 Active documented as of this encounter (statuses as of 03/15/2024) Active Problems Problem Noted Date Diagnosed Date Diabetic peripheral neuropathy 12/12/2023 Class 2 severe obesity due t o excess calories with serious comorbidity and body mass index (BMI) of 35.0 to 35.9 in adult 09/25/2023 BPH with obstruction/lower urinary tract symptom s 09/25/2023 SHANNON (obstructive sleep apnea) 03/27/2023 Food insecurity 03/24/2023 Overview: Per [facility] Protocol Type 2 diabetes mellitus wit h hemoglobin A1c goal of less than 7.0% 03/14/2023 HTN, goal below 130/80 03/14/2023 documented as of this encounter (statuses as of 03/15/2024) Immunizations Name Administration Dates Next Due COVID-19 mRNA, LNP-s, No Pre serve, 2-Dose Series ([employer]) 06/01/2021,06/28/2020,05/23/2020 Pneumococcal Conjugate Vacci ne, 20-valent ([id number]) 09/25/2023 Seasonal Influenza Vac., MDV , IM, [...] 12/01/2023 Transportation Needs Answer Date Record ed Do you have trouble getting a ride to medical visits or work? (Adult - for ages 18 years and over) Not on file 12/01/2023 Does your family have a hard [...] place to sleep at night? No 12/01/2023 Do you think you are at risk of becoming homeless? (Adult - for ages 18 years and over) Not on file 12/01/2023 Does your family worry about paying [...] 10:40 AM EST Office Visit Family Practice [facility] [address] [place] [address] Maya Cutler MD [address] [place] [address] 04/26/2024 11:00 AM EST Office Visit Pharmacy, [facility] [place] [address] [place] [address] Pharmacist2, [facility] [address] [facility] [address] [place] [address] 07/07/2024 10:00 AM EST Office Visit Urology Zeinab Jacobo [address] [place] [address] Valeriano Rizvi Jr., MD [address] [place] [address] 07/07/2024 11:20 AM EST [facility] [address] [id number] Sherrie Jones, [address] [id number] Health Maintenance Due Date Last Done Comments HIV Screening 01/29/1976 Hepatitis C Screening 1979 Cologuard 2006 Fecal Occult Blood Test 2006 Sigmoidoscopy 2006 COVID-19 Vaccine ( season) 2024 03/12/2023, 06/01/2021, 06/28/2020, Additional history exists Albumin/Creatinine Ratio 03/27/2024 03/27/2023 Diabetic Eye Exam 06/03/2024 06/03/2023 HbA1c 08/24/2024 02/24/2024, 09/09, 06/06/2023, Additional history exists Diabetic Foot Exam 09/24/2024 09/25/2023 Depression Screening 01/06/2025 01/07/2024 GFR 02/23/2025 02/24/2024, 0910/2023, 06/06/2023, Additional history exists Lipid Panel 03/27/2028 [...] Procedure Name Priority Date/Time Associated Diagnosis Comments RADIOLOGY SCANNED RESULT 03/13/2024 RADIOLOGY SCANNED RESULT 03/13/2024 documented in this encounter Results * RADIOLOGY SCANNED RESULT (03/13/2024) 03/13/2024 No Physician Data Unknown DIAGNOSTIC RAD IOLOGY SERVICES * RADIOLOGY SCANNED RESULT (03/13/2024) 03/13/2024 No Physician Data Unknown DIAGNOSTIC RAD IOLOGY SERVICES documented in this encounter Care Teams Heavy Equipment Plumbing Supervisor Relationship Specialty Start Date End Date Maya Cutler MD [address] [place] [address] PCP - General Family Medicine 03/27/23 documented as of this encounter
[2024-03-16 06:44] LABS: Hematocrit (blood only) 31.9 % (42.0-52.0); Hemoglobin 10.8 g/dl (14.0-18.0); Mean Corpuscular Hemoglobin 28.6 pg (25.0-34.0); Mean Corpuscular Hgb Conc 33.9 g/dL (32.0-36.0); Mean Corpuscular Volume 84.4 fL (80.0-100.0); Mean Platelet Volume 10.3 fL (9.4-12.4); Platelet Count 182 K/uL (130-400); RDW Coefficient of Variation 14.4 % (11.5-14.5); RDW Standard Deviation 43.8 fL (36.4-46.3); Red Blood Count 3.78 M/uL (4.70-6.10); White Blood Count 6.82 K/ul (4.8-10.8)
[2024-03-16 07:25] LABS: BUN Creatinine Ratio 18.8 (10-20); Calcium 9.3 mg/dl (8.6-10.3); Creatinine Clr Calc Pharmacy 94.9 ml/min; Magnesium 1.8 mg/dl (1.7-2.4); Phosphorus 4.4 mg/dl (2.5-4.9); Potassium 3.9 mmol/L (3.5-5.1)
[2024-03-16] MEDS: ACETAMINOPHEN 325 MG TAB PO PRN (07:48)
[2024-03-16 08:14] VITALS: PULSE 69
[2024-03-16] MEDS: ACETAMINOPHEN 500 MG TAB PO SCH (08:27)
[2024-03-16] MEDS ORDERED: ROSUVASTATIN CALCIUM 20 MG TAB PO SCH (09:00)
[2024-03-16] MEDS: lisinopril 20 MG TAB PO SCH (09:36)
[2024-03-16 11:10] VITALS: BP 127/79; RESP 18; O2SAT 98
--- NOTE | 2024-03-16 12:27 | Discharge Summary ---
Discharge Summary Date of Service March 16, 2024 Principal Dx & Hospital Course #1 = Principal Diagnosis (1) Puncture wound of hand: (2) Cellulitis of left hand: (3) Strain of muscle, fascia and tendon of triceps, left arm, initial encounter: Plan Patient presented to the emergency room after he had fallen on a tree stump and punctured his left hand. Significant redness and swelling with some venous streaking. Patient was admitted to the hospital. Placed on broad-spectrum IV antibiotics. Orthopedic consultation was obtained. They evaluated the patient and did not feel that there was any surgical interventions required. The puncture wound was dressed with a compression bandage. And given instructions to keep the hand elevated. By the following morning patient significant improvement in the redness and swelling of his hand. He still complaining of some soreness in this hand and some soreness of the left arm most likely due to strain sprain of the upper extremity from falling on that arm. MRSA screen was negative. He can be transition to oral antibiotics. And follow-up with his outpatient providers. Notes For Next Care Provider Medication Changes From Visit Augmentin for ongoing treatment of cellulitis Diclofenac for upper extremity strain sprain Admission HPI Per Admitting Provider Ron Rose is a 64y/o M with PMHx significant for DM type II, diabetic peripheral neuropathy, SHANNON on CPAP, HTN, BPH, hyperlipidemia, vitamin D deficiency and essential tremor who presented to the ED for evaluation of left hand and wrist pain. History obtained from patient and associated chart review. Patient seen at bedside with Dr. Kerns. Patient reports that he was playing outside with his family and tripped over his dog this past Friday which resulted in him landing on his left hand outstretched directly onto a small tree stump. He unfortunately suffered a puncture wound to his left palmar region as there was a piece of sharp wood that was sticking out of the tree stump. The piece of wood thankfully did not impale through his entire hand. He does not recall any fragments of wood being stuck inside of this puncture wound. He actually went to be evaluated at [facility] emergency department after the injury occurred and x-ray imaging at that time was negative for any acute fractures. He was discharged home with instructions for wound care and he was also placed in a splint at that time. He has been dealing with a significant amount of pain since then. He has been taking Motrin and Tylenol [id number] without much relief. He reports that he is now unable to move his left wrist or hand due to the pain. He does still have mobility at his left elbow joint. He has noticed some redness and warmth around the site of the puncture wound that does seem to be tracking up his left forearm region. He denies any fevers, chills or body aches since the injury occurred. He reports that his tetanus vaccination is up-to-date [last completed 09/25/2023 per [facility] review]. He is not currently on any antibiotics. He has been cleaning his puncture wound at home with hydrogen peroxide. Patient reports minimal if any pain relief following 5mg po oxycodone and 2mg IV morphine in the ED. Mentions that he had an itching sensation over his right chest wall region after receiving the morphine however that has since subsided without intervention. He reports that he breaks out in hives and full-body itching with codeine. Offered to trial IV Toradol and he was agreeable to doing so. Admission Exam Per Admitting Provider See H&P Discharge Exam Constitutional: Alert HEENT: Mucous membranes moist. Lungs: Clear to auscultation, decreased, no wheezes rales or rhonchi CV: S1-S2, regular Abdomen: Soft, nontender, nondistended Extremities: Small puncture wound in palmar surface of left hand. No surrounding erythema, no fluctuance, minimal tenderness, no venous streaking, no significant erythema or edema. Significantly improved Neuro: No focal deficits Psych: Cooperative, normal mood Updated Medication List Medication Instructions Recorded Confirmed Type rosuvastatin 40 mg tablet 40 mg PO DAILY 05/22/23 03/15/24 History fluticasone propionate 50 2 spray intranasal DAILY PRN 05/26/23 03/15/24 History mcg/actuation nasal allergies spray,suspension tamsulosin 0.4 mg capsule 0.4 mg PO HS 05/26/23 03/15/24 History glyburide 5 mg tablet 5 mg PO DAILY 03/15/24 03/15/24 History lisinopril 20 mg tablet 20 mg PO DAILY 03/15/24 03/15/24 History metformin 500 mg tablet,extended 1,000 mg PO BID 03/15/24 03/15/24 History release 24 hr pregabalin 150 mg capsule 150 mg PO BID 03/15/24 03/15/24 History amoxicillin 875 mg-potassium 1 tab PO BID #14 tabs 03/16/24 Rx clavulanate 125 mg tablet diclofenac sodium 50 mg 50 mg PO Q12H PRN pain #14 tabs 03/16/24 Rx tablet,delayed release Hospital Stay Data Consultations 03/15/24 12:49 ED Decision to Admit Stat 03/15/24 12:56 Consult Orthopedic Surgery Routine Diagnostic Imagining Performed Reviewed imaging, laboratory and diagnostic studies. Pertinent findings as below. WBCs 6.8 Hemoglobin 10.8 Platelets 182 Electrolytes all within normal range Glucose 164 MRSA screen negative Imaging of left hand and wrist no significant fracture or dislocation Pending Results Patient Have Any Pending Studies at Discharge: Yes Discharge Instructions Given to Patient (Per Discharging Provider) Keep wound clean and dry Complete course of antibiotics Total Time Total Time Spent Total Time Spent (In Minutes): 32
--- NOTE | 2024-03-16 13:00 | Orthopedic Progress Note ---
Date of Service March 16, 2024 Assessment & Plan (1) Puncture wound of hand: Plan: Continue to monitor wound. May keep it clean and dry with soap and water. Keep covered as needed. Encouraged finger range of motion. May advance activities as tolerated. Ice and elevate as needed for swelling. Avoid any activities that cause discomfort. Would recommend no heavy pushing, pulling or gripping activities this week at least. Follow-up as scheduled on Friday with [facility] orthopedics on March 19 at 9:30 AM. Call [phone] with any questions. Okay from orthopedic standpoint for discharge to home. Oral antibiotics as per primary service. Will discuss findings with Dr. Rowland. (2) Cellulitis of left hand: Admission and Anticipated Discharge Date Admission Date: March 15, 2024 Subjective Patient is doing significantly better today. He still has some pain at the open wound area but the discomfort into his thumb as well as the redness and swelling has improved greatly. He has taken off the Sheldon bandage. He has been able to use his hand a little more. He states he still unable to make a full fist but it does feel better. Denies any fevers or chills. States that he is planning on going home today. He works as a schoolbus driver sales in a assembling [employer] and would like to get back to that as soon as possible. He does plan on taking off the rest of this week. Physical Exam Musculoskeletal: Exam of his left hand: He has some mild edema in the palmar surface of his hand but less erythema. He is nontender throughout the thenar eminence or the hypothenar eminence today. He is tender directly at the puncture wound area and into the central palmar aspect of the hand. There is no wrist joint effusion. No finger will edema. Normal sensation throughout his hand. He has full flexion extension of the DIP and PIP joints. At the MCP joints he has full extension but still limited flexion but can get to about 90 degrees of all of his fingers. He is able to approximate the thumb to all of his fingers except for the small finger. Distal pulses are 1+. Capillary fill is brisk. No fluctuance or underlying abscess palpated. No drainage from the wound. Results & Data Vital Signs (Past 12 Hours) Vital Signs Temp Pulse Pulse Resp BP Pulse Ox O2 Del Method 03/16/24 11:09 36.4 C L 69 18 127/79 98 Room Air 03/16/24 08:13 36.4 C L 69 16 107/70 97 Room Air 03/16/24 03:45 72 13 98 Laboratory Results Lab Results 03/15/24 03/15/24 03/15/24 Range/Units 11:09 17:12 20:48 WBC 6.35 (4.8-10.8) K/ul RBC 3.99 L (4.70-6.10) M/uL Hgb 11.5 L (14.0-18.0) g/dl Hct 33.5 L (42.0-52.0) % MCV 84.0 (80.0-100.0) fL MCH 28.8 (25.0-34.0) pg MCHC 34.3 (32.0-36.0) g/dL RDW Std Deviation 44.6 (36.4-46.3) fL RDW Coeff of Wai 14.6 H (11.5-14.5) % Plt Count 198 (130-400) K/uL MPV 10.4 (9.4-12.4) fL Immature Gran % (Auto) 0.6 % Neut % (Auto) 68.2 % Lymph % (Auto) 20.9 % Aurora % (Auto) 6.6 % Eos % (Auto) 3.1 % Baso % (Auto) 0.6 % Neut # (Auto) 4.32 (1.40-6.50) K/uL Lymph # (Auto) 1.33 (1.20-3.40) K/uL Aurora # (Auto) 0.42 (0.11-0.59) K/uL Eos # (Auto) 0.20 (0.00-0.50) K/uL Baso # (Auto) 0.04 (0.00-0.20) K/uL Immature Gran # (Auto) 0.04 (0.01-0.20) K/uL Sodium 136 (136-145) mmol/L Potassium 4.2 (3.5-5.1) mmol/L Chloride 103 (98-107) mmol/L Carbon Dioxide 26 (21-32) mmol/L Anion Gap 7 (3-11) BUN 14 (6-23) mg/dl Creatinine 0.73 (0.6-1.4) mg/dl Est Cr Clr Drug Dosing 125.7 ml/min eGFR 102.23 BUN/Creatinine Ratio 19.2 (10-20) Glucose 190 H (70-99(Fasting)) mg/dl POC Glucose 215 H 239 H (70-99) mg/dl Calcium 9.7 (8.6-10.3) mg/dl Phosphorus (2.5-4.9) mg/dl Magnesium (1.7-2.4) mg/dl Total Bilirubin 0.4 (0.2-1.0) mg/dl AST 20 (13-39) U/L ALT 29 (7-52) U/L Alkaline Phosphatase 70 (34-104) U/L Total Creatine Kinase (30-223) U/L Total Protein 7.4 (6.0-8.3) gm/dl Albumin 4.4 (3.4-5.0) gm/dl Globulin 3.0 (2.5-4.0) gm/dl Albumin/Globulin Ratio 1.5 (0.9-2) Nasal Screen MRSA (PCR) (Negative) 03/15/24 03/16/24 03/16/24 Range/Units Unknown 06:10 07:34 WBC 6.82 (4.8-10.8) K/ul RBC 3.78 L (4.70-6.10) M/uL Hgb 10.8 L (14.0-18.0) g/dl Hct 31.9 L (42.0-52.0) % MCV 84.4 (80.0-100.0) fL MCH 28.6 (25.0-34.0) pg MCHC 33.9 (32.0-36.0) g/dL RDW Std Deviation 43.8 (36.4-46.3) fL RDW Coeff of Wai 14.4 (11.5-14.5) % Plt Count 182 (130-400) K/uL MPV 10.3 (9.4-12.4) fL Immature Gran % (Auto) % Neut % (Auto) % Lymph % (Auto) % Aurora % (Auto) % Eos % (Auto) % Baso % (Auto) % Neut # (Auto) (1.40-6.50) K/uL Lymph # (Auto) (1.20-3.40) K/uL Aurora # (Auto) (0.11-0.59) K/uL Eos # (Auto) (0.00-0.50) K/uL Baso # (Auto) (0.00-0.20) K/uL Immature Gran # (Auto) (0.01-0.20) K/uL Sodium 140 (136-145) mmol/L Potassium 3.9 (3.5-5.1) mmol/L Chloride 105 (98-107) mmol/L Carbon Dioxide 27 (21-32) mmol/L Anion Gap 8 (3-11) BUN 18 (6-23) mg/dl Creatinine 0.96 (0.6-1.4) mg/dl Est Cr Clr Drug Dosing 94.9 ml/min eGFR 88.82 BUN/Creatinine Ratio 18.8 (10-20) Glucose 101 H (70-99(Fasting)) mg/dl POC Glucose 111 H (70-99) mg/dl Calcium 9.3 (8.6-10.3) mg/dl Phosphorus 4.4 (2.5-4.9) mg/dl Magnesium 1.8 (1.7-2.4) mg/dl Total Bilirubin (0.2-1.0) mg/dl AST (13-39) U/L ALT (7-52) U/L Alkaline Phosphatase (34-104) U/L Total Creatine Kinase 46 (30-223) U/L Total Protein (6.0-8.3) gm/dl Albumin (3.4-5.0) gm/dl Globulin (2.5-4.0) gm/dl Albumin/Globulin Ratio (0.9-2) Nasal Screen MRSA (PCR) Negative (Negative) 03/16/24 Range/Units 11:39 WBC (4.8-10.8) K/ul RBC (4.70-6.10) M/uL Hgb (14.0-18.0) g/dl Hct (42.0-52.0) % MCV (80.0-100.0) fL MCH (25.0-34.0) pg MCHC (32.0-36.0) g/dL RDW Std Deviation (36.4-46.3) fL RDW Coeff of Wai (11.5-14.5) % Plt Count (130-400) K/uL MPV (9.4-12.4) fL Immature Gran % (Auto) % Neut % (Auto) % Lymph % (Auto) % Aurora % (Auto) % Eos % (Auto) % Baso % (Auto) % Neut # (Auto) (1.40-6.50) K/uL Lymph # (Auto) (1.20-3.40) K/uL Aurora # (Auto) (0.11-0.59) K/uL Eos # (Auto) (0.00-0.50) K/uL Baso # (Auto) (0.00-0.20) K/uL Immature Gran # (Auto) (0.01-0.20) K/uL Sodium (136-145) mmol/L Potassium (3.5-5.1) mmol/L Chloride (98-107) mmol/L Carbon Dioxide (21-32) mmol/L Anion Gap (3-11) BUN (6-23) mg/dl Creatinine (0.6-1.4) mg/dl Est Cr Clr Drug Dosing ml/min eGFR BUN/Creatinine Ratio (10-20) Glucose (70-99(Fasting)) mg/dl POC Glucose 164 H (70-99) mg/dl Calcium (8.6-10.3) mg/dl Phosphorus (2.5-4.9) mg/dl Magnesium (1.7-2.4) mg/dl Total Bilirubin (0.2-1.0) mg/dl AST (13-39) U/L ALT (7-52) U/L Alkaline Phosphatase (34-104) U/L Total Creatine Kinase (30-223) U/L Total Protein (6.0-8.3) gm/dl Albumin (3.4-5.0) gm/dl Globulin (2.5-4.0) gm/dl Albumin/Globulin Ratio (0.9-2) Nasal Screen MRSA (PCR) (Negative)
== END 2024-03-16 14:57 | disposition home or self-care (01) | DRG 603 ==
LOC: ED 10:23 → 3N 12:53 → INTOOBSV 12:53 → SUATTDRO 12:53 → 3N 15:57